=== PATIENT | female | born 1995 | race American Indian/Alaskan Native ===

== ENCOUNTER 2020-03-08 16:30 | Inpatient (IN) | payer MEDICAID ==
[2020-03-08] MEDS ORDERED: Ondansetron 4 MG Tab.DIS PO ONE (17:15)
[2020-03-08] MEDS ORDERED: Sodium Chloride 0.9% 10 ML Syringe FLUSH PRN (17:15)
--- NOTE | 2020-03-08 17:20 | EDM.PDOC ---
ED HPI GENERAL MEDICAL PROBLEM - General Chief Complaint: Respiratory Problem Stated Complaint: KASEY DALEY HAS BEEN EXPOSED Time Seen by Provider: 03/08/20 16:54 Source of Information: Reports: Patient, RN Notes Reviewed History Limitations: Reports: No Limitations - History of Present Illness INITIAL COMMENTS - FREE TEXT/NARRATIVE: Patient is a 24-year-old female who presents to the ED for the evaluation of her increasing shortness of breath. Patient notes that she has been with her cousin, and her cousin tested positive for COVID-19 yesterday. She states that she did take a test on Wednesday but is waiting for results. She states since last Wednesday, or for 6 days she has had increasing shortness of breath, body aches/chills, she did had a fever last Wednesday, she states that she is nauseous and cannot really keep much down she has not ate much for any type of food in the last week. She is also having some mild diarrhea. She was found to have O2 sats 84% on room air at initial time of triage, and she was placed on 1 L nasal cannula and this raised her O2 sats to 94%. She is not having any pain in her body. She is complaining of a dry cough. She states that she is on her menses, so she does not think that she could be . She has no past medical history, other than obesity. She takes no medications on a regular basis, and she is not a smoker, does not drink alcohol and is not a drug user. - Related Data Allergies Allergy/AdvReac Type Severity Reaction Status Date / Time No Known Allergies Allergy Verified 03/08/20 16:46 Home Meds: Home Meds . [No Known Home Meds] 03/08/20 [History] Past Medical History - Past Health History Medical/Surgical History: Denies Medical/Surgical History Endocrine/Metabolic History: Reports: Obesity/BMI 30+ Social & Family History - Family History Family Medical History: Noncontributory - Tobacco Use Smoking Status *Q: Never Smoker - Caffeine Use Caffeine Use: Reports: Coffee, Soda - Recreational Drug Use Recreational Drug Use: No ED ROS GENERAL - Review of Systems Review Of Systems: Comprehensive ROS is negative, except as noted in HPI. ED EXAM, GENERAL - Physical Exam Exam: See Below Exam Limited By: No Limitations General Appearance: Alert, WD/WN, No Apparent Distress Respiratory/Chest: No Respiratory Distress, Lungs Clear, Chest Non-Tender, Decreased Breath Sounds (bilaterally) Cardiovascular: Normal Peripheral Pulses, Regular Rate, Rhythm, No Murmur Peripheral Pulses: 2+: Radial (L), Radial (R) GI/Abdominal: Normal Bowel Sounds, Soft, Non-Tender, No Distention, No Mass Extremities: Normal Inspection, Normal Capillary Refill Neurological: Alert, Oriented, Normal Cognition, No Motor/Sensory Deficits Psychiatric: Normal Affect, Normal Mood Skin Exam: Warm, Dry, Intact, Normal Color, No Rash EKG INTERPRETATION EKG Date: 03/08/20 Time: 17:24 Rhythm: NSR (sinus tach) Rate (Beats/Min): 110 [place]: Normal P-Wave: Present QRS: Normal ST-T: Normal QT: Normal Comparison: NA - No Prior EKG EKG Interpretation Comments: No obvious ischemia or acute ST changes noted, reviewed by myself and Dr. Conley. Course - Vital Signs Last Recorded V/S: Last Vital Signs Temp 98.6 F 03/08/20 16:42 Pulse 124 H 03/08/20 16:42 Resp 28 H 03/08/20 16:42 BP 136/82 03/08/20 16:42 Pulse Ox 84 L 03/08/20 17:15 - Orders/Labs/Meds Orders: Active Orders 24 hr Category Date Time Status EKG Documentation Completion [RC] STAT Care 03/08/20 17:02 Ordered Oxygen Therapy [RC] ASDIRECTED Care 03/08/20 17:16 Active Peripheral IV Care [RC] . DIRECTED Care 03/08/20 17:15 Ordered Chest 1V Frontal [CR] Stat Exams 03/08/20 17:02 Once BLOOD GAS ARTERIAL [BG] Stat Lab 03/08/20 17:02 Ordered Sodium Chloride 0.9% [Saline Flush] Med 03/08/20 17:15 Ordered 10 ml FLUSH ASDIRECTED PRN Peripheral IV Insertion Adult [OM.PC] Routine Oth 03/08/20 17:15 Ordered Medication Orders Sodium Chloride (Saline Flush) 10 ml FLUSH ASDIRECTED PRN PRN Reason: Keep Vein Open Last Admin: 03/08/20 17:41 Dose: 10 ml Documented by: BORIS Labs: Laboratory Tests 08/21/20 08/21/20 08/21/20 Range/Units 17:25 17:25 17:25 WBC 4.82 (3.98-10.04) K/mm3 RBC 4.93 (3.98-5.22) M/mm3 Hgb 10.3 L (11.2-15.7) gm/dl Hct 34.9 (34.1-44.9) % MCV 70.8 L (79.4-94.8) fl MCH 20.9 L (25.6-32.2) pg MCHC 29.5 L (32.2-35.5) g/dl RDW Std Deviation 39.9 (36.4-46.3) fL Plt Count 304 (182-369) K/mm3 MPV 9.4 (9.4-12.3) fl Neutrophils % (Manual) 67 H (40-60) % Band Neutrophils % 1 (0-10) % Lymphocytes % (Manual) 24 (20-40) % Atypical Lymphs % 0 % Monocytes % (Manual) 7 (2-10) % Eosinophils % (Manual) 1 (0.7-5.8) % Basophils % (Manual) 0 L (0.1-1.2) Platelet Estimate Adequate Hypochromasia 1+ slight Microcytosis 1+ slight RBC Morph Comment Not Reportable PT 10.9 (9.7-12.0) SECONDS INR 1.02 APTT 29 (22-31) SECONDS D-Dimer, Quantitative 0.32 (0.19-0.50) mg/L Sodium (136-145) mEq/L Potassium (3.5-5.1) mEq/L Chloride (98-107) mEq/L Carbon Dioxide (21-32) mEq/L Anion Gap (5-15) BUN (7-18) mg/dL Creatinine (0.55-1.02) mg/dL Est Cr Clr Drug Dosing mL/min Estimated GFR (MDRD) (>60) mL/min BUN/Creatinine Ratio (14-18) Glucose (74-106) mg/dL Lactic Acid (0.4-2.0) mmol/L Calcium (8.5-10.1) mg/dL Magnesium (1.8-2.4) mg/dl Ferritin (8-252) ng/ml Total Bilirubin (0.2-1.0) mg/dL AST (15-37) U/L ALT (14-59) U/L Alkaline Phosphatase (46-116) U/L Lactate Dehydrogenase (81-234) U/L Creatine Kinase (26-192) U/L Troponin I (0.00-0.056) ng/mL C-Reactive Protein 4.9 H* (<1.0) mg/dL NT-Pro-B Natriuret Pep (0-125) pg/mL Total Protein (6.4-8.2) g/dl Albumin (3.4-5.0) g/dl Globulin gm/dL Albumin/Globulin Ratio (1-2) SARS Virus RNA (PCR) (NEGATIVE) 03/08/20 03/08/20 03/08/20 Range/Units 17:25 17:25 17:25 WBC (3.98-10.04) K/mm3 RBC (3.98-5.22) M/mm3 Hgb (11.2-15.7) gm/dl Hct (34.1-44.9) % MCV (79.4-94.8) fl MCH (25.6-32.2) pg MCHC (32.2-35.5) g/dl RDW Std Deviation (36.4-46.3) fL Plt Count (182-369) K/mm3 MPV (9.4-12.3) fl Neutrophils % (Manual) (40-60) % Band Neutrophils % (0-10) % Lymphocytes % (Manual) (20-40) % Atypical Lymphs % % Monocytes % (Manual) (2-10) % Eosinophils % (Manual) (0.7-5.8) % Basophils % (Manual) (0.1-1.2) Platelet Estimate Hypochromasia Microcytosis RBC Morph Comment PT (9.7-12.0) SECONDS INR APTT (22-31) SECONDS D-Dimer, Quantitative (0.19-0.50) mg/L Sodium 135 L (136-145) mEq/L Potassium 3.6 (3.5-5.1) mEq/L Chloride 99 (98-107) mEq/L Carbon Dioxide 29 (21-32) mEq/L Anion Gap 10.6 (5-15) BUN 4 L (7-18) mg/dL Creatinine 0.7 (0.55-1.02) mg/dL Est Cr Clr Drug Dosing 121.55 mL/min Estimated GFR (MDRD) > 60 (>60) mL/min BUN/Creatinine Ratio 5.7 L (14-18) Glucose 129 H (74-106) mg/dL Lactic Acid (0.4-2.0) mmol/L Calcium 8.1 L (8.5-10.1) mg/dL Magnesium 1.9 (1.8-2.4) mg/dl Ferritin 105 (8-252) ng/ml Total Bilirubin 0.2 (0.2-1.0) mg/dL AST 136 H (15-37) U/L ALT 130 H (14-59) U/L Alkaline Phosphatase 63 (46-116) U/L Lactate Dehydrogenase 370 H (81-234) U/L Creatine Kinase 55 (26-192) U/L Troponin I < 0.017 (0.00-0.056) ng/mL C-Reactive Protein (<1.0) mg/dL NT-Pro-B Natriuret Pep 25 (0-125) pg/mL Total Protein 8.8 H (6.4-8.2) g/dl Albumin 3.5 (3.4-5.0) g/dl Globulin 5.3 gm/dL Albumin/Globulin Ratio 0.7 L (1-2) SARS Virus RNA (PCR) (NEGATIVE) 03/08/20 03/08/20 Range/Units 17:25 17:50 WBC (3.98-10.04) K/mm3 RBC (3.98-5.22) M/mm3 Hgb (11.2-15.7) gm/dl Hct (34.1-44.9) % MCV (79.4-94.8) fl MCH (25.6-32.2) pg MCHC (32.2-35.5) g/dl RDW Std Deviation (36.4-46.3) fL Plt Count (182-369) K/mm3 MPV (9.4-12.3) fl Neutrophils % (Manual) (40-60) % Band Neutrophils % (0-10) % Lymphocytes % (Manual) (20-40) % Atypical Lymphs % % Monocytes % (Manual) (2-10) % Eosinophils % (Manual) (0.7-5.8) % Basophils % (Manual) (0.1-1.2) Platelet Estimate Hypochromasia Microcytosis RBC Morph Comment PT (9.7-12.0) SECONDS INR APTT (22-31) SECONDS D-Dimer, Quantitative (0.19-0.50) mg/L Sodium (136-145) mEq/L Potassium (3.5-5.1) mEq/L Chloride (98-107) mEq/L Carbon Dioxide (21-32) mEq/L Anion Gap (5-15) BUN (7-18) mg/dL Creatinine (0.55-1.02) mg/dL Est Cr Clr Drug Dosing mL/min Estimated GFR (MDRD) (>60) mL/min BUN/Creatinine Ratio (14-18) Glucose (74-106) mg/dL Lactic Acid 0.7 (0.4-2.0) mmol/L Calcium (8.5-10.1) mg/dL Magnesium (1.8-2.4) mg/dl Ferritin (8-252) ng/ml Total Bilirubin (0.2-1.0) mg/dL AST (15-37) U/L ALT (14-59) U/L Alkaline Phosphatase (46-116) U/L Lactate Dehydrogenase (81-234) U/L Creatine Kinase (26-192) U/L Troponin I (0.00-0.056) ng/mL C-Reactive Protein (<1.0) mg/dL NT-Pro-B Natriuret Pep (0-125) pg/mL Total Protein (6.4-8.2) g/dl Albumin (3.4-5.0) g/dl Globulin gm/dL Albumin/Globulin Ratio (1-2) SARS Virus RNA (PCR) Positive H (NEGATIVE) Meds: Medications Generic Name Dose Route Start Last Admin Trade Name Freq PRN Reason Stop Dose Admin Sodium Chloride 10 ml 03/08/20 17:15 03/08/20 17:41 Saline Flush FLUSH 10 ml ASDIRECTED PRN Administration Keep Vein Open Discontinued Medications Generic Name Dose Route Start Last Admin Trade Name Freq PRN Reason Stop Dose Admin Ondansetron HCl 4 mg 03/08/20 17:15 03/08/20 17:44 Zofran Odt PO 03/08/20 17:16 Not Given ONETIME ONE Ondansetron HCl Confirm 03/08/20 17:40 03/08/20 17:44 Zofran Administered 03/08/20 17:41 Not Given Dose 4 mg .ROUTE .STK-MED ONE Ondansetron HCl 4 mg 03/08/20 17:44 03/08/20 17:45 Zofran IVPUSH 03/08/20 17:45 4 mg ONETIME ONE Administration - Re-Assessments/Exams Free Text/Narrative Re-Assessment/Exam: 03/08/20 17:38 Patient presents to the ED for the evaluation of her ongoing respiratory symptoms, and extensive work-up will be carried out, to include chest x-ray, multiple labs, and 1 hour coronavirus test inhouse testing. She will also have an IV placed, and she will be given Zofran for management. 03/08/20 18:05 Chest x-ray shows low lung volumes, and bilateral perihilar and basilar alveolar opacities concerning for pneumonia or edema versus atelectasis. Due to the patient's symptoms again I highly suspect that she has COVID-19 and would suspect this is more of the viral pneumonia pattern. 03/08/20 18:49 Patient's labs have returned, and she is positive for COVID-19 at this time. CBC is unremarkable, d-dimer in normal limits at 0.32. Lactic acid in normal limits at 0.7. LDH elevated at 370, and CRP elevated at 4.9. I did discuss the case with Dr. Plummer, and he does accept for hospital admission at this time. Departure - Departure Time of Disposition: 18:54 Disposition: Admitted As Inpatient 67 Condition: Good Clinical Impression: 2019 novel coronavirus detected, Hypoxia - Discharge Information *PRESCRIPTION DRUG MONITORING PROGRAM REVIEWED*: No *COPY OF PRESCRIPTION DRUG MONITORING REPORT IN PATIENT RADHA: No Referrals: PCP,None [Primary Care Provider] - Forms: ED Department Discharge Sepsis Event Note (ED) - Evaluation Sepsis Screening Result: Possible Sepsis Risk - Focused Exam Vital Signs: Vital Signs Temp Pulse Resp BP Pulse Ox Pulse Ox 03/08/20 17:15 84 L 03/08/20 16:42 98.6 F 124 H 28 H 136/82 84 L - My Orders Last 24 Hours: My Active Orders 03/08/20 17:02 EKG Documentation Completion [RC] STAT Chest 1V Frontal [CR] Stat BLOOD GAS ARTERIAL [BG] Stat 03/08/20 17:15 Peripheral IV Care [RC] . DIRECTED Sodium Chloride 0.9% [Saline Flush] 10 ml FLUSH ASDIRECTED PRN Peripheral IV Insertion Adult [OM.PC] Routine 03/08/20 17:16 Oxygen Therapy [RC] ASDIRECTED - Assessment/Plan Last 24 Hours: My Active Orders 03/08/20 17:02 EKG Documentation Completion [RC] STAT Chest 1V Frontal [CR] Stat BLOOD GAS ARTERIAL [BG] Stat 03/08/20 17:15 Peripheral IV Care [RC] . DIRECTED Sodium Chloride 0.9% [Saline Flush] 10 ml FLUSH ASDIRECTED PRN Peripheral IV Insertion Adult [OM.PC] Routine 03/08/20 17:16 Oxygen Therapy [RC] ASDIRECTED
[2020-03-08] MEDS ORDERED: Ondansetron 4 MG/2 ML SDV ONE (17:40)
[2020-03-08] MEDS ORDERED: Ondansetron 4 MG/2 ML SDV IVPUSH ONE (17:44)
[2020-03-08] MEDS ORDERED: Ondansetron 4 MG/2 ML SDV IV PRN (20:16)
--- NOTE | 2020-03-08 21:13 | PCM.HP.2 ---
H&P History of Present Illness - General Date of Service: 03/08/20 Admit Problem/Dx: Admission Diagnosis/Problem Admission Diagnosis/Problem Hypoxemia - History of Present Illness Initial Comments - Free Text/Narative: 24-year-old patient who was exposed to her cousin who tested positive with COVID-19 presents to the emergency department with increasing shortness of breath, dry cough, nausea, and diarrhea. Patient states that last Monday, March 02, 2020, she developed a subjective fever. She then became short of breath and developed a cough with body aches. For last several days she has had loose stools and presented to the emergency department with above. In the emergency department she was found to have an SPO2 of 84% on room air and was placed on 1 L nasal cannula. Patient's cousin was tested 5 days ago for COVID 19 and received the positive results today. In the emergency department patient was screened for COVID-19 and tested positive. Patient is a non-smoker and has no history of asthma. Initial lab work: WBC 4.82, hemoglobin 10.3, MCV 70.8 low, MCH 20.9 low, platelet count 304, microcytosis with hypochromasia, PT 10.9, INR 1.0, d-dimer 0.32 normal, C-reactive protein 4.9, sodium 135, potassium 3.6, BUN 4, creatinine 0.7, bicarb 29, magnesium 1.9, ferritin 105, AST 136, ALT 130, LDH 370 (normal 36395) creatinine kinase 55, troponin I less than 0.017, proBNP 25, lactic acid 0.7. - Related Data Allergies/Adverse Reactions: Allergies Allergy/AdvReac Type Severity Reaction Status Date / Time No Known Allergies Allergy Verified 03/08/20 23:32 Home Medications: Home Meds . [No Known Home Meds] 03/08/20 [History] Past Medical History - Past Health History Medical/Surgical History: Denies Medical/Surgical History Endocrine/Metabolic History: Reports: Obesity/BMI 30+ Social & Family History - Family History Family Medical History: Noncontributory - Tobacco Use Smoking Status *Q: Never Smoker - Caffeine Use Caffeine Use: Reports: Coffee, Soda - Recreational Drug Use Recreational Drug Use: No H&P Review of Systems - Review of Systems: Review Of Systems: Comprehensive ROS is negative, except as noted in HPI. Exam - Exam Exam: See Below - Vital Signs Vital Signs: Last Vital Signs Temp 98.6 F 03/08/20 16:42 Pulse 124 H 03/08/20 16:42 Resp 28 H 03/08/20 16:42 BP 136/82 03/08/20 16:42 Pulse Ox 84 L 03/08/20 17:15 Weight: 111.13 kg - Exam Quality Assessment: Supplemental Oxygen General: Alert, Oriented, Mild Distress (Increased respiratory rate and effort) HEENT: Conjunctiva Clear, EOMI, Hearing Intact, Mucosa Moist & Pharr, Nares Patent Neck: Supple, Trachea Midline, 2 Lungs: Clear to Auscultation, Normal Respiratory Effort, Decreased Breath Soun ds. No: Crackles, Rales, Rhonchi, Wheezing Cardiovascular: Regular Rate, Regular Rhythm GI/Abdominal Exam: Normal Bowel Sounds, Soft, Non-Tender, No Organomegaly, No Distention (Obese), No Abnormal Bruit, No Mass Back Exam: Normal Inspection Extremities: Normal Inspection, Normal Range of Motion, Non-Tender, No Pedal Edema, Normal Capillary Refill Skin: Warm, Dry, Intact Neurological: Cranial Nerves Intact Neuro Extensive - Mental Status: Alert, Oriented x3, Normal Mood/Affect, Normal Cognition, Memory Intact Neuro Extensive - Motor, Sensory, Reflexes: CN II-XII Intact Psychiatric: Alert, Normal Affect, Normal Mood - Patient Data Lab Results Last 24 hrs: Laboratory Results - last 24 hr 03/08/20 03/08/20 03/08/20 Range/Units 17:25 17:25 17:25 WBC 4.82 (3.98-10.04) K/mm3 RBC 4.93 (3.98-5.22) M/mm3 Hgb 10.3 L (11.2-15.7) gm/dl Hct 34.9 (34.1-44.9) % MCV 70.8 L (79.4-94.8) fl MCH 20.9 L (25.6-32.2) pg MCHC 29.5 L (32.2-35.5) g/dl RDW Std Deviation 39.9 (36.4-46.3) fL Plt Count 304 (182-369) K/mm3 MPV 9.4 (9.4-12.3) fl Neutrophils % (Manual) 67 H (40-60) % Band Neutrophils % 1 (0-10) % Lymphocytes % (Manual) 24 (20-40) % Atypical Lymphs % 0 % Monocytes % (Manual) 7 (2-10) % Eosinophils % (Manual) 1 (0.7-5.8) % Basophils % (Manual) 0 L (0.1-1.2) Platelet Estimate Adequate Hypochromasia 1+ slight Microcytosis 1+ slight RBC Morph Comment Not Reportable PT 10.9 (9.7-12.0) SECONDS INR 1.02 APTT 29 (22-31) SECONDS D-Dimer, Quantitative 0.32 (0.19-0.50) mg/L Sodium (136-145) mEq/L Potassium (3.5-5.1) mEq/L Chloride (98-107) mEq/L Carbon Dioxide (21-32) mEq/L Anion Gap (5-15) BUN (7-18) mg/dL Creatinine (0.55-1.02) mg/dL Est Cr Clr Drug Dosing mL/min Estimated GFR (MDRD) (>60) mL/min BUN/Creatinine Ratio (14-18) Glucose (74-106) mg/dL Lactic Acid (0.4-2.0) mmol/L Calcium (8.5-10.1) mg/dL Magnesium (1.8-2.4) mg/dl Ferritin (8-252) ng/ml Total Bilirubin (0.2-1.0) mg/dL AST (15-37) U/L ALT (14-59) U/L Alkaline Phosphatase (46-116) U/L Lactate Dehydrogenase (81-234) U/L Creatine Kinase (26-192) U/L Troponin I (0.00-0.056) ng/mL C-Reactive Protein 4.9 H* (<1.0) mg/dL NT-Pro-B Natriuret Pep (0-125) pg/mL Total Protein (6.4-8.2) g/dl Albumin (3.4-5.0) g/dl Globulin gm/dL Albumin/Globulin Ratio (1-2) Vitamin D 25-Hydroxy (30.0-100.0) ng/ml SARS Virus RNA (PCR) (NEGATIVE) 03/08/20 03/08/20 03/08/20 Range/Units 17:25 17:25 17:25 WBC (3.98-10.04) K/mm3 RBC (3.98-5.22) M/mm3 Hgb (11.2-15.7) gm/dl Hct (34.1-44.9) % MCV (79.4-94.8) fl MCH (25.6-32.2) pg MCHC (32.2-35.5) g/dl RDW Std Deviation (36.4-46.3) fL Plt Count (182-369) K/mm3 MPV (9.4-12.3) fl Neutrophils % (Manual) (40-60) % Band Neutrophils % (0-10) % Lymphocytes % (Manual) (20-40) % Atypical Lymphs % % Monocytes % (Manual) (2-10) % Eosinophils % (Manual) (0.7-5.8) % Basophils % (Manual) (0.1-1.2) Platelet Estimate Hypochromasia Microcytosis RBC Morph Comment PT (9.7-12.0) SECONDS INR APTT (22-31) SECONDS D-Dimer, Quantitative (0.19-0.50) mg/L Sodium 135 L (136-145) mEq/L Potassium 3.6 (3.5-5.1) mEq/L Chloride 99 (98-107) mEq/L Carbon Dioxide 29 (21-32) mEq/L Anion Gap 10.6 (5-15) BUN 4 L (7-18) mg/dL Creatinine 0.7 (0.55-1.02) mg/dL Est Cr Clr Drug Dosing 121.55 mL/min Estimated GFR (MDRD) > 60 (>60) mL/min BUN/Creatinine Ratio 5.7 L (14-18) Glucose 129 H (74-106) mg/dL Lactic Acid (0.4-2.0) mmol/L Calcium 8.1 L (8.5-10.1) mg/dL Magnesium 1.9 (1.8-2.4) mg/dl Ferritin 105 (8-252) ng/ml Total Bilirubin 0.2 (0.2-1.0) mg/dL AST 136 H (15-37) U/L ALT 130 H (14-59) U/L Alkaline Phosphatase 63 (46-116) U/L Lactate Dehydrogenase 370 H (81-234) U/L Creatine Kinase 55 (26-192) U/L Troponin I < 0.017 (0.00-0.056) ng/mL C-Reactive Protein (<1.0) mg/dL NT-Pro-B Natriuret Pep 25 (0-125) pg/mL Total Protein 8.8 H (6.4-8.2) g/dl Albumin 3.5 (3.4-5.0) g/dl Globulin 5.3 gm/dL Albumin/Globulin Ratio 0.7 L (1-2) Vitamin D 25-Hydroxy (30.0-100.0) ng/ml SARS Virus RNA (PCR) (NEGATIVE) 03/08/20 03/08/20 03/08/20 Range/Units 17:25 17:25 17:50 WBC (3.98-10.04) K/mm3 RBC (3.98-5.22) M/mm3 Hgb (11.2-15.7) gm/dl Hct (34.1-44.9) % MCV (79.4-94.8) fl MCH (25.6-32.2) pg MCHC (32.2-35.5) g/dl RDW Std Deviation (36.4-46.3) fL Plt Count (182-369) K/mm3 MPV (9.4-12.3) fl Neutrophils % (Manual) (40-60) % Band Neutrophils % (0-10) % Lymphocytes % (Manual) (20-40) % Atypical Lymphs % % Monocytes % (Manual) (2-10) % Eosinophils % (Manual) (0.7-5.8) % Basophils % (Manual) (0.1-1.2) Platelet Estimate Hypochromasia Microcytosis RBC Morph Comment PT (9.7-12.0) SECONDS INR APTT (22-31) SECONDS D-Dimer, Quantitative (0.19-0.50) mg/L Sodium (136-145) mEq/L Potassium (3.5-5.1) mEq/L Chloride (98-107) mEq/L Carbon Dioxide (21-32) mEq/L Anion Gap (5-15) BUN (7-18) mg/dL Creatinine (0.55-1.02) mg/dL Est Cr Clr Drug Dosing mL/min Estimated GFR (MDRD) (>60) mL/min BUN/Creatinine Ratio (14-18) Glucose (74-106) mg/dL Lactic Acid 0.7 (0.4-2.0) mmol/L Calcium (8.5-10.1) mg/dL Magnesium (1.8-2.4) mg/dl Ferritin (8-252) ng/ml Total Bilirubin (0.2-1.0) mg/dL AST (15-37) U/L ALT (14-59) U/L Alkaline Phosphatase (46-116) U/L Lactate Dehydrogenase (81-234) U/L Creatine Kinase (26-192) U/L Troponin I (0.00-0.056) ng/mL C-Reactive Protein (<1.0) mg/dL NT-Pro-B Natriuret Pep (0-125) pg/mL Total Protein (6.4-8.2) g/dl Albumin (3.4-5.0) g/dl Globulin gm/dL Albumin/Globulin Ratio (1-2) Vitamin D 25-Hydroxy < 5.0 L (30.0-100.0) ng/ml SARS Virus RNA (PCR) Positive H (NEGATIVE) Result Diagrams: 03/08/20 17:25 03/09/20 09:45 Imaging Impressions Last 24 hrs: Portable 1 view chest x-ray: Poor inspiratory effort making evaluation more difficult. Possible bilateral infiltrates versus atelectasis. Sepsis Event Note - Evaluation Sepsis Screening Result: Possible Sepsis Risk - Focused Exam Vital Signs: Vital Signs Temp Pulse Resp BP Pulse Ox Pulse Ox 03/08/20 17:15 84 L 03/08/20 16:42 98.6 F 124 H 28 H 136/82 84 L - Problem List (1) 2019 novel coronavirus detected SNOMED Code(s): 694470508, 167289321 ICD Code: U07.1 - COVID-19 Status: Acute Current Visit: Yes (2) Hypoxia SNOMED Code(s): 305156584 ICD Code: R09.02 - HYPOXEMIA Status: Acute Current Visit: Yes (3) Microcytic hypochromic anemia SNOMED Code(s): 11614987 ICD Code: D50.9 - IRON DEFICIENCY ANEMIA, UNSPECIFIED Status: Acute Current Visit: Yes (4) Vitamin D deficiency SNOMED Code(s): 07722893 ICD Code: E55.9 - VITAMIN D DEFICIENCY, UNSPECIFIED Status: Acute Current Visit: Yes Problem List Initiated/Reviewed/Updated: Yes Orders Last 24hrs: Active Orders 24 hr Category Date Time Status Admission Status [Patient Status] [ADT] Routine ADT 03/08/20 18:50 Active Cardiac Monitoring [RC] . DIRECTED Care 03/08/20 19:41 Active EKG Documentation Completion [RC] STAT Care 03/08/20 17:02 Active Oxygen Therapy [RC] ASDIRECTED Care 03/08/20 17:16 Active Peripheral IV Care [RC] . DIRECTED Care 03/08/20 17:15 Active Up ad Aury [RC] ASDIRECTED Care 03/08/20 20:16 Active VTE/DVT Education [RC] PER UNIT ROUTINE Care 03/08/20 20:16 Active Vital Signs [RC] Q4H Care 03/08/20 20:16 Active Respiratory Care Assess and Treatment [CONS] Routine Cons 03/08/20 20:19 Active Regular Diet [DIET] Diet 03/08/20 Dinner Active Chest 1V Frontal [CR] Stat Exams 03/08/20 17:02 Once C-REACTIVE PROTEIN [CHEM] AM Lab 03/09/20 05:11 Ordered C-REACTIVE PROTEIN [CHEM] AM Lab 03/10/20 05:11 Ordered C-REACTIVE PROTEIN [CHEM] AM Lab 03/11/20 05:11 Ordered C-REACTIVE PROTEIN [CHEM] AM Lab 03/12/20 05:11 Ordered C-REACTIVE PROTEIN [CHEM] AM Lab 03/13/20 05:11 Ordered C-REACTIVE PROTEIN [CHEM] AM Lab 03/14/20 05:11 Ordered CBC WITH AUTO DIFF [HEME] AM Lab 03/09/20 05:11 Ordered CBC WITH AUTO DIFF [HEME] AM Lab 03/10/20 05:11 Ordered CBC WITH AUTO DIFF [HEME] AM Lab 03/11/20 05:11 Ordered CBC WITH AUTO DIFF [HEME] AM Lab 03/12/20 05:11 Ordered CBC WITH AUTO DIFF [HEME] AM Lab 03/13/20 05:11 Ordered CBC WITH AUTO DIFF [HEME] AM Lab 03/14/20 05:11 Ordered COMPREHENSIVE METABOLIC PN,CMP [CHEM] AM Lab 03/09/20 05:11 Ordered COMPREHENSIVE METABOLIC PN,CMP [CHEM] AM Lab 03/10/20 05:11 Ordered COMPREHENSIVE METABOLIC PN,CMP [CHEM] AM Lab 03/11/20 05:11 Ordered COMPREHENSIVE METABOLIC PN,CMP [CHEM] AM Lab 03/12/20 05:11 Ordered COMPREHENSIVE METABOLIC PN,CMP [CHEM] AM Lab 03/13/20 05:11 Ordered COMPREHENSIVE METABOLIC PN,CMP [CHEM] AM Lab 03/14/20 05:11 Ordered D Dimer [D-DIMER QUANTITATIVE] [COAG] AM Lab 03/09/20 05:11 Ordered D Dimer [D-DIMER QUANTITATIVE] [COAG] AM Lab 03/10/20 05:11 Ordered D Dimer [D-DIMER QUANTITATIVE] [COAG] AM Lab 03/11/20 05:11 Ordered D Dimer [D-DIMER QUANTITATIVE] [COAG] AM Lab 03/12/20 05:11 Ordered D Dimer [D-DIMER QUANTITATIVE] [COAG] AM Lab 03/13/20 05:11 Ordered D Dimer [D-DIMER QUANTITATIVE] [COAG] AM Lab 03/14/20 05:11 Ordered MAGNESIUM [CHEM] AM Lab 03/09/20 05:11 Ordered MAGNESIUM [CHEM] AM Lab 03/10/20 05:11 Ordered MAGNESIUM [CHEM] AM Lab 03/11/20 05:11 Ordered MAGNESIUM [CHEM] AM Lab 03/12/20 05:11 Ordered MAGNESIUM [CHEM] AM Lab 03/13/20 05:11 Ordered MAGNESIUM [CHEM] AM Lab 03/14/20 05:11 Ordered Acetaminophen [TylenoL] Med 03/08/20 20:16 Active 650 mg PO Q4H PRN Enoxaparin [Lovenox] Med 03/08/20 20:30 Active 40 mg SUBCUT DAILY Ondansetron [Zofran] Med 03/08/20 20:16 Active 4 mg IV Q4H PRN Remdesivir (Eua) [Remdesivir (EUA)] 200 mg Med 03/08/20 21:00 Active Sodium Chloride 0.9% [Normal Saline] 250 ml IV ONETIME Sodium Chloride 0.9% [Saline Flush] Med 03/08/20 17:15 Active 10 ml FLUSH ASDIRECTED PRN Peripheral IV Insertion Adult [OM.PC] Routine Oth 03/08/20 17:15 Ordered Pulse Oximetry Continuous Monitoring [OM.PC] Routine Oth 03/08/20 19:50 Active Resuscitation Status Routine Resus Stat 03/08/20 20:16 Ordered Medication Orders Acetaminophen (Tylenol) 650 mg PO Q4H PRN PRN Reason: Pain (Mild 1-3)/fever Enoxaparin Sodium (Lovenox) 40 mg SUBCUT DAILY SONYA REMDESIVIR (EUA) 200 mg/ (Sodium Chloride) 250 mls @ 250 mls/hr IV ONETIME ONE Stop: 03/08/20 21:59 Ondansetron HCl (Zofran) 4 mg IV Q4H PRN PRN Reason: Nausea/Vomiting Sodium Chloride (Saline Flush) 10 ml FLUSH ASDIRECTED PRN PRN Reason: Keep Vein Open Last Admin: 03/08/20 17:41 Dose: 10 ml Documented by: BORIS Assessment/Plan Comment:: Assessment COVID-19 infection with hypoxemia * Symptoms started 6 days ago with fever and progressed to shortness of breath, cough, nausea, vomiting, and diarrhea * Mild respiratory distress with increased respiratory rate * Initial pulse ox on room air 84% * 1 L nasal cannula adequate to bring SPO2 up to 94% * Patient is able to keep fluids down but not solid foods. * Adequate urination * Chest x-ray consistent with bilateral pneumonia, but poor quality image secondary to poor inspiration * WBC 4.82, INR 1.0, d-dimer 0.32, CRP 4.9, ferritin 105, creatinine kinase 55, LDH 370, troponin I less than 0.017, proBNP 25, lactic acid 0.7 Microcytic anemia * Hemoglobin 10.3 with MCV of 70.8 and MCH 20.9. Microcytosis and hypochromasia was noted. * Normal ferritin of 105, but confounded by active COVID-19 infection * Menstrual cycles are generally normal in quality and only last 5 days. Vitamin D deficiency * 25 hydroxy vitamin D <0.05 Plan * Admit to [facility] on telemetry and continuous pulse ox * FiO2 to keep SPO2 between 88-95% * Remdesivir 200 mg IV x1 then 100 mg IV daily * Hold on using dexamethasone, antibiotics, tocilizumab secondary to requiring only 1 L nasal cannula and CRP less than 8. Hold on antibiotics because no signs of bacterial coinfection. * Monitor CBC, CMP, mag, d-dimer, CRP daily. * If CRP continues to climb her oxygen requirement continues to increase will consider dexamethasone and tocilizumab. * Encourage prone positioning * Ferrous sulfate 324 mg twice daily with vitamin C 250 mg twice daily * Vitamin D3 5000 international units daily * Procalcitonin * Troponin I in the morning * VTE prophylaxis with Lovenox 40 mg subcu daily * CODE STATUS: Full code * Length of stay minimum of 5 days to finish full course of remdesivir. Patient also will need to be off of requiring oxygen. - Mortality Measure Prognosis:: Good
[2020-03-08] MEDS: Codeine/guaiFENesin 10-100 MG/5 ML Syrup 5 ML Cup PO PRN (22:20)
[2020-03-08] MEDS: Cholecalciferol (Vitamin D3) 5,000 UNIT Tab PO SCH (22:21)
[2020-03-08] MEDS: Enoxaparin 40 MG/0.4 ML Syringe SUBCUT SCH (22:21)
[2020-03-08] MEDS: Benzonatate 100 MG Cap PO PRN (22:21)
[2020-03-09] MEDS: Acetaminophen 325 MG Tab PO PRN ×2 (04:18→13:40)
[2020-03-09] MEDS: Codeine/guaiFENesin 10-100 MG/5 ML Syrup 5 ML Cup PO PRN ×3 (04:18→20:14)
[2020-03-09] MEDS: Benzonatate 100 MG Cap PO PRN ×3 (04:18→20:14)
[2020-03-09] MEDS: Ascorbic Acid 500 MG Tab PO SCH ×2 (06:31→16:10)
[2020-03-09] MEDS: Ferrous Sulfate 324 MG Tab.EC PO SCH ×2 (06:32→16:11)
[2020-03-09] MEDS: Cholecalciferol (Vitamin D3) 5,000 UNIT Tab PO SCH (09:13)
[2020-03-09] MEDS: Enoxaparin 40 MG/0.4 ML Syringe SUBCUT SCH (09:13)
--- NOTE | 2020-03-09 10:25 | CR ---
Chest: Portable view of the chest was obtained. Comparison: No prior chest imaging is available. Low lung volumes are noted. Increased density is noted within the mid and lower lungs most likely due to atelectasis. If patient has infectious symptoms pneumonia is also within the differential. Heart size and mediastinum are normal. Bony structures are grossly intact. Impression: 1. Limited study as noted above. 2. Atelectasis likely present within both lungs. Differential includes pneumonia if patient has infectious symptoms. Diagnostic code #3 This report was dictated in MDT I agree with preliminary report from [facility], finalized on 03/08/20, 6:55 PM Central Daylight Time
[2020-03-09] MEDS ORDERED: Potassium Chloride 20 MEQ Tab.ER PO ONE (10:29)
[2020-03-09] MEDS ORDERED: Azithromycin 500 MG in Sodium Chloride 0.9% 250 ML IV ONE (13:51)
[2020-03-09] MEDS ORDERED: Albuterol 6.7 GM Inhaler INH PRN (13:54)
[2020-03-09] MEDS: cefTRIAXone 2 GM in Sodium Chloride 0.9% 100 ML IV SCH (14:30)
[2020-03-09] MEDS: Dexamethasone 4 MG Tab PO SCH (14:32)
--- NOTE | 2020-03-09 14:43 | PCM.PN ---
- General Info Date of Service: 03/09/20 Admission Dx/Problem (Free Text): Admission Diagnosis/Problem Admission Diagnosis/Problem Hypoxemia Subjective Update: Patient is having more difficulty this morning with coughing. She is requiring increasing FiO2 to maintain saturations in the 90s. If she gets up and goes to the bathroom or does any other activity she will quickly desat and require several minutes to get her oxygen saturations higher. She is currently on between 3 and 4 L nasal cannula. She has a poor appetite and did not sleep well last night because of coughing. Functional Status: Reports: Pain Controlled - Review of Systems General: Reports: No Symptoms HEENT: Reports: No Symptoms Pulmonary: Reports: Shortness of Breath, Cough Cardiovascular: Reports: No Symptoms Gastrointestinal: Reports: Decreased Appetite, Nausea Musculoskeletal: Reports: No Symptoms Skin: Reports: No Symptoms Psychiatric: Reports: No Symptoms - Patient Data Vitals - Most Recent: Last Vital Signs Temp 97.2 F 03/09/20 13:42 Pulse 88 03/09/20 13:42 Resp 24 H 03/09/20 13:42 BP 122/68 03/09/20 12:00 Pulse Ox 93 L 03/09/20 13:42 Weight - Most Recent: 111.13 kg I&O - Last 24 Hours: Intake & Output 03/08/20 03/09/20 03/09/20 22:59 06:59 14:59 Intake Total 250 910 Output Total 250 Balance 250 660 Lab Results Last 24 Hours: Laboratory Results - last 24 hr 03/08/20 03/08/20 03/08/20 Range/Units 17:25 17:25 17:25 WBC 4.82 (3.98-10.04) K/mm3 RBC 4.93 (3.98-5.22) M/mm3 Hgb 10.3 L (11.2-15.7) gm/dl Hct 34.9 (34.1-44.9) % MCV 70.8 L (79.4-94.8) fl MCH 20.9 L (25.6-32.2) pg MCHC 29.5 L (32.2-35.5) g/dl RDW Std Deviation 39.9 (36.4-46.3) fL Plt Count 304 (182-369) K/mm3 MPV 9.4 (9.4-12.3) fl Neutrophils % (Manual) 67 H (40-60) % Band Neutrophils % 1 (0-10) % Lymphocytes % (Manual) 24 (20-40) % Atypical Lymphs % 0 % Monocytes % (Manual) 7 (2-10) % Eosinophils % (Manual) 1 (0.7-5.8) % Basophils % (Manual) 0 L (0.1-1.2) Platelet Estimate Adequate Hypochromasia 1+ slight Microcytosis 1+ slight RBC Morph Comment Not Reportable PT 10.9 (9.7-12.0) SECONDS INR 1.02 APTT 29 (22-31) SECONDS Fibrinogen (187-446) mg/dL D-Dimer, Quantitative 0.32 (0.19-0.50) mg/L Sodium (136-145) mEq/L Potassium (3.5-5.1) mEq/L Chloride (98-107) mEq/L Carbon Dioxide (21-32) mEq/L Anion Gap (5-15) BUN (7-18) mg/dL Creatinine (0.55-1.02) mg/dL Est Cr Clr Drug Dosing mL/min Estimated GFR (MDRD) (>60) mL/min BUN/Creatinine Ratio (14-18) Glucose (74-106) mg/dL Lactic Acid (0.4-2.0) mmol/L Calcium (8.5-10.1) mg/dL Phosphorus (2.6-4.7) mg/dL Magnesium (1.8-2.4) mg/dl Ferritin (8-252) ng/ml Total Bilirubin (0.2-1.0) mg/dL AST (15-37) U/L ALT (14-59) U/L Alkaline Phosphatase (46-116) U/L Lactate Dehydrogenase (81-234) U/L Creatine Kinase (26-192) U/L Troponin I (0.00-0.056) ng/mL C-Reactive Protein 4.9 H* (<1.0) mg/dL NT-Pro-B Natriuret Pep (0-125) pg/mL Total Protein (6.4-8.2) g/dl Albumin (3.4-5.0) g/dl Globulin gm/dL Albumin/Globulin Ratio (1-2) Vitamin D 25-Hydroxy (30.0-100.0) ng/ml SARS Virus RNA (PCR) (NEGATIVE) 03/08/20 03/08/20 03/08/20 Range/Units 17:25 17:25 17:25 WBC (3.98-10.04) K/mm3 RBC (3.98-5.22) M/mm3 Hgb (11.2-15.7) gm/dl Hct (34.1-44.9) % MCV (79.4-94.8) fl MCH (25.6-32.2) pg MCHC (32.2-35.5) g/dl RDW Std Deviation (36.4-46.3) fL Plt Count (182-369) K/mm3 MPV (9.4-12.3) fl Neutrophils % (Manual) (40-60) % Band Neutrophils % (0-10) % Lymphocytes % (Manual) (20-40) % Atypical Lymphs % % Monocytes % (Manual) (2-10) % Eosinophils % (Manual) (0.7-5.8) % Basophils % (Manual) (0.1-1.2) Platelet Estimate Hypochromasia Microcytosis RBC Morph Comment PT (9.7-12.0) SECONDS INR APTT (22-31) SECONDS Fibrinogen (187-446) mg/dL D-Dimer, Quantitative (0.19-0.50) mg/L Sodium 135 L (136-145) mEq/L Potassium 3.6 (3.5-5.1) mEq/L Chloride 99 (98-107) mEq/L Carbon Dioxide 29 (21-32) mEq/L Anion Gap 10.6 (5-15) BUN 4 L (7-18) mg/dL Creatinine 0.7 (0.55-1.02) mg/dL Est Cr Clr Drug Dosing 121.55 mL/min Estimated GFR (MDRD) > 60 (>60) mL/min BUN/Creatinine Ratio 5.7 L (14-18) Glucose 129 H (74-106) mg/dL Lactic Acid (0.4-2.0) mmol/L Calcium 8.1 L (8.5-10.1) mg/dL Phosphorus (2.6-4.7) mg/dL Magnesium 1.9 (1.8-2.4) mg/dl Ferritin 105 (8-252) ng/ml Total Bilirubin 0.2 (0.2-1.0) mg/dL AST 136 H (15-37) U/L ALT 130 H (14-59) U/L Alkaline Phosphatase 63 (46-116) U/L Lactate Dehydrogenase 370 H (81-234) U/L Creatine Kinase 55 (26-192) U/L Troponin I < 0.017 (0.00-0.056) ng/mL C-Reactive Protein (<1.0) mg/dL NT-Pro-B Natriuret Pep 25 (0-125) pg/mL Total Protein 8.8 H (6.4-8.2) g/dl Albumin 3.5 (3.4-5.0) g/dl Globulin 5.3 gm/dL Albumin/Globulin Ratio 0.7 L (1-2) Vitamin D 25-Hydroxy (30.0-100.0) ng/ml SARS Virus RNA (PCR) (NEGATIVE) 03/08/20 03/08/20 03/08/20 Range/Units 17:25 17:25 17:50 WBC (3.98-10.04) K/mm3 RBC (3.98-5.22) M/mm3 Hgb (11.2-15.7) gm/dl Hct (34.1-44.9) % MCV (79.4-94.8) fl MCH (25.6-32.2) pg MCHC (32.2-35.5) g/dl RDW Std Deviation (36.4-46.3) fL Plt Count (182-369) K/mm3 MPV (9.4-12.3) fl Neutrophils % (Manual) (40-60) % Band Neutrophils % (0-10) % Lymphocytes % (Manual) (20-40) % Atypical Lymphs % % Monocytes % (Manual) (2-10) % Eosinophils % (Manual) (0.7-5.8) % Basophils % (Manual) (0.1-1.2) Platelet Estimate Hypochromasia Microcytosis RBC Morph Comment PT (9.7-12.0) SECONDS INR APTT (22-31) SECONDS Fibrinogen (187-446) mg/dL D-Dimer, Quantitative (0.19-0.50) mg/L Sodium (136-145) mEq/L Potassium (3.5-5.1) mEq/L Chloride (98-107) mEq/L Carbon Dioxide (21-32) mEq/L Anion Gap (5-15) BUN (7-18) mg/dL Creatinine (0.55-1.02) mg/dL Est Cr Clr Drug Dosing mL/min Estimated GFR (MDRD) (>60) mL/min BUN/Creatinine Ratio (14-18) Glucose (74-106) mg/dL Lactic Acid 0.7 (0.4-2.0) mmol/L Calcium (8.5-10.1) mg/dL Phosphorus (2.6-4.7) mg/dL Magnesium (1.8-2.4) mg/dl Ferritin (8-252) ng/ml Total Bilirubin (0.2-1.0) mg/dL AST (15-37) U/L ALT (14-59) U/L Alkaline Phosphatase (46-116) U/L Lactate Dehydrogenase (81-234) U/L Creatine Kinase (26-192) U/L Troponin I (0.00-0.056) ng/mL C-Reactive Protein (<1.0) mg/dL NT-Pro-B Natriuret Pep (0-125) pg/mL Total Protein (6.4-8.2) g/dl Albumin (3.4-5.0) g/dl Globulin gm/dL Albumin/Globulin Ratio (1-2) Vitamin D 25-Hydroxy < 5.0 L (30.0-100.0) ng/ml SARS Virus RNA (PCR) Positive H (NEGATIVE) 03/09/20 03/09/20 03/09/20 Range/Units 09:45 09:45 09:45 WBC (3.98-10.04) K/mm3 RBC (3.98-5.22) M/mm3 Hgb (11.2-15.7) gm/dl Hct (34.1-44.9) % MCV (79.4-94.8) fl MCH (25.6-32.2) pg MCHC (32.2-35.5) g/dl RDW Std Deviation (36.4-46.3) fL Plt Count (182-369) K/mm3 MPV (9.4-12.3) fl Neutrophils % (Manual) (40-60) % Band Neutrophils % (0-10) % Lymphocytes % (Manual) (20-40) % Atypical Lymphs % % Monocytes % (Manual) (2-10) % Eosinophils % (Manual) (0.7-5.8) % Basophils % (Manual) (0.1-1.2) Platelet Estimate Hypochromasia Microcytosis RBC Morph Comment PT (9.7-12.0) SECONDS INR APTT (22-31) SECONDS Fibrinogen (187-446) mg/dL D-Dimer, Quantitative 0.32 (0.19-0.50) mg/L Sodium 135 L (136-145) mEq/L Potassium 3.3 L (3.5-5.1) mEq/L Chloride 98 (98-107) mEq/L Carbon Dioxide 29 (21-32) mEq/L Anion Gap 11.3 (5-15) BUN 9 (7-18) mg/dL Creatinine 0.7 (0.55-1.02) mg/dL Est Cr Clr Drug Dosing 121.55 mL/min Estimated GFR (MDRD) > 60 (>60) mL/min BUN/Creatinine Ratio 12.9 L (14-18) Glucose 116 H (74-106) mg/dL Lactic Acid (0.4-2.0) mmol/L Calcium 8.1 L (8.5-10.1) mg/dL Phosphorus 4.0 (2.6-4.7) mg/dL Magnesium 2.0 (1.8-2.4) mg/dl Ferritin (8-252) ng/ml Total Bilirubin 0.2 (0.2-1.0) mg/dL AST 167 H (15-37) U/L ALT 137 H (14-59) U/L Alkaline Phosphatase 55 (46-116) U/L Lactate Dehydrogenase (81-234) U/L Creatine Kinase (26-192) U/L Troponin I < 0.017 (0.00-0.056) ng/mL C-Reactive Protein 5.2 H* (<1.0) mg/dL NT-Pro-B Natriuret Pep (0-125) pg/mL Total Protein 8.1 (6.4-8.2) g/dl Albumin 3.1 L (3.4-5.0) g/dl Globulin 5.0 gm/dL Albumin/Globulin Ratio 0.6 L (1-2) Vitamin D 25-Hydroxy (30.0-100.0) ng/ml SARS Virus RNA (PCR) (NEGATIVE) 03/09/20 Range/Units 09:45 WBC (3.98-10.04) K/mm3 RBC (3.98-5.22) M/mm3 Hgb (11.2-15.7) gm/dl Hct (34.1-44.9) % MCV (79.4-94.8) fl MCH (25.6-32.2) pg MCHC (32.2-35.5) g/dl RDW Std Deviation (36.4-46.3) fL Plt Count (182-369) K/mm3 MPV (9.4-12.3) fl Neutrophils % (Manual) (40-60) % Band Neutrophils % (0-10) % Lymphocytes % (Manual) (20-40) % Atypical Lymphs % % Monocytes % (Manual) (2-10) % Eosinophils % (Manual) (0.7-5.8) % Basophils % (Manual) (0.1-1.2) Platelet Estimate Hypochromasia Microcytosis RBC Morph Comment PT (9.7-12.0) SECONDS INR APTT (22-31) SECONDS Fibrinogen 444 (187-446) mg/dL D-Dimer, Quantitative (0.19-0.50) mg/L Sodium (136-145) mEq/L Potassium (3.5-5.1) mEq/L Chloride (98-107) mEq/L Carbon Dioxide (21-32) mEq/L Anion Gap (5-15) BUN (7-18) mg/dL Creatinine (0.55-1.02) mg/dL Est Cr Clr Drug Dosing mL/min Estimated GFR (MDRD) (>60) mL/min BUN/Creatinine Ratio (14-18) Glucose (74-106) mg/dL Lactic Acid (0.4-2.0) mmol/L Calcium (8.5-10.1) mg/dL Phosphorus (2.6-4.7) mg/dL Magnesium (1.8-2.4) mg/dl Ferritin (8-252) ng/ml Total Bilirubin (0.2-1.0) mg/dL AST (15-37) U/L ALT (14-59) U/L Alkaline Phosphatase (46-116) U/L Lactate Dehydrogenase (81-234) U/L Creatine Kinase (26-192) U/L Troponin I (0.00-0.056) ng/mL C-Reactive Protein (<1.0) mg/dL NT-Pro-B Natriuret Pep (0-125) pg/mL Total Protein (6.4-8.2) g/dl Albumin (3.4-5.0) g/dl Globulin gm/dL Albumin/Globulin Ratio (1-2) Vitamin D 25-Hydroxy (30.0-100.0) ng/ml SARS Virus RNA (PCR) (NEGATIVE) Med Orders - Current: Current Medications Acetaminophen (Tylenol) 650 mg PO Q4H PRN PRN Reason: Pain (Mild 1-3)/fever Last Admin: 03/09/20 13:40 Dose: 650 mg Documented by: Albuterol (Proventil Hfa) 0 gm INH Q4H PRN PRN Reason: Shortness of Breath Last Admin: 03/09/20 14:09 Dose: 2 puff Documented by: Ascorbic Acid (Vitamin C) 250 mg PO BIDAC [facility] Last Admin: 03/09/20 06:31 Dose: 250 mg Documented by: Benzonatate (Tessalon Perles) 100 mg PO QID PRN PRN Reason: Cough Last Admin: 03/09/20 13:40 Dose: 100 mg Documented by: Cholecalciferol (Vitamin D3) 10,000 unit PO DAILY [facility] Dexamethasone (Dexamethasone) 6 mg PO DAILY [facility] Last Admin: 03/09/20 14:32 Dose: 6 mg Documented by: Enoxaparin Sodium (Lovenox) 40 mg SUBCUT DAILY [facility] Last Admin: 03/09/20 09:13 Dose: 40 mg Documented by: Ferrous Sulfate (Ferrous Sulfate) 324 mg PO BIDMEALS [facility] Last Admin: 03/09/20 06:32 Dose: 324 mg Documented by: Guaifenesin/Codeine Phosphate (Robitussin Ac) 5 ml PO Q4H PRN PRN Reason: Cough Last Admin: 03/09/20 13:39 Dose: 5 ml Documented by: REMDESIVIR (EUA) 100 mg/ (Sodium Chloride) 100 mls @ 100 mls/hr IV Q24H [facility] Stop: 03/12/20 21:59 Azithromycin 500 mg/ Sodium (Chloride) 250 mls @ 250 mls/hr IV ONETIME ONE Stop: 03/09/20 14:50 Last Admin: 03/09/20 14:33 Dose: 250 mls/hr Documented by: Ceftriaxone Sodium 2 gm/ (Sodium Chloride) 100 mls @ 200 mls/hr IV Q24H [facility] Last Admin: 03/09/20 14:30 Dose: 200 mls/hr Documented by: Azithromycin 500 mg/ Sodium (Chloride) 250 mls @ 250 mls/hr IV Q24H [facility] Stop: 03/12/20 14:01 Ondansetron HCl (Zofran) 4 mg IV Q4H PRN PRN Reason: Nausea/Vomiting Sodium Chloride (Saline Flush) 10 ml FLUSH ASDIRECTED PRN PRN Reason: Keep Vein Open Last Admin: 03/08/20 17:41 Dose: 10 ml Documented by: Discontinued Medications Cholecalciferol (Vitamin D3) 5,000 unit PO DAILY [facility] Last Admin: 03/09/20 09:13 Dose: 5,000 unit Documented by: REMDESIVIR (EUA) 200 mg/ (Sodium Chloride) 250 mls @ 250 mls/hr IV ONETIME ONE Stop: 03/08/20 21:59 Last Admin: 03/08/20 21:13 Dose: 250 mls/hr Documented by: Ondansetron HCl (Zofran Odt) 4 mg PO ONETIME ONE Stop: 03/08/20 17:16 Last Admin: 03/08/20 17:44 Dose: Not Given Documented by: Ondansetron HCl (Zofran) Confirm Administered Dose 4 mg .ROUTE .STK-MED ONE Stop: 03/08/20 17:41 Last Admin: 03/08/20 17:44 Dose: Not Given Documented by: Ondansetron HCl (Zofran) 4 mg IVPUSH ONETIME ONE Stop: 03/08/20 17:45 Last Admin: 03/08/20 17:45 Dose: 4 mg Documented by: Potassium Chloride (Klor-Con M20) 40 meq PO ONETIME ONE Stop: 03/09/20 10:30 Last Admin: 03/09/20 12:45 Dose: 40 meq Documented by: - Exam Quality Assessment: Supplemental Oxygen General: Alert, Oriented HEENT: Pupils Equal, Mucous Membr. Moist/[place] Neck: Supple Lungs: Clear to Auscultation, Normal Respiratory Effort, Decreased Breath Sounds Cardiovascular: Regular Rate, Regular Rhythm GI/Abdominal Exam: Normal Bowel Sounds, Soft, Non-Tender, No Distention, No Abnormal Bruit Extremities: Normal Inspection, Normal Range of Motion, Non-Tender, No Pedal Edema, Normal Capillary Refill Peripheral Pulses: 2+: Posterior Tibial (L), Posterior Tibial (R), Dorsalis Pedis (L), Dorsalis Pedis (R) Skin: Warm, Dry, Intact Neurological: No New Focal Deficit Psy/Mental Status: Alert, Normal Affect, Normal Mood Sepsis Event Note - Evaluation Sepsis Screening Result: Possible Sepsis Risk - Focused Exam Vital Signs: Vital Signs Temp Temp Pulse Pulse Resp BP BP 03/09/20 13:42 97.2 F 88 24 H 03/09/20 12:30 85 03/09/20 12:15 78 03/09/20 12:01 93 03/09/20 12:00 80 89 22 H 122/68 122/68 03/09/20 11:59 81 03/09/20 11:45 77 03/09/20 11:30 78 03/09/20 11:15 74 03/09/20 11:00 76 03/09/20 10:45 76 03/09/20 10:30 74 03/09/20 10:15 77 03/09/20 10:00 74 03/09/20 09:45 82 03/09/20 09:30 80 03/09/20 09:17 87 119/69 03/09/20 09:16 90 03/09/20 09:15 85 03/09/20 09:14 86 03/09/20 09:13 84 03/09/20 09:12 84 93/77 03/09/20 09:11 88 03/09/20 09:10 83 03/09/20 09:09 82 03/09/20 09:08 75 03/09/20 09:07 80 03/09/20 09:06 82 03/09/20 09:05 77 03/09/20 09:04 75 03/09/20 09:03 81 03/09/20 09:02 80 03/09/20 09:01 75 03/09/20 09:00 80 03/09/20 08:59 79 03/09/20 08:58 80 03/09/20 08:57 79 03/09/20 08:56 79 03/09/20 08:55 78 03/09/20 08:54 76 03/09/20 08:53 75 03/09/20 08:52 77 03/09/20 08:51 76 03/09/20 08:50 80 03/09/20 08:49 78 03/09/20 08:48 80 03/09/20 08:01 82 88/69 L 03/09/20 08:00 97.8 F 78 87 22 H 119/69 03/09/20 07:00 75 03/09/20 06:00 97.7 F 80 20 03/09/20 05:00 89 03/09/20 04:18 99.8 F 03/09/20 04:00 99.6 F 24 H 123/67 03/09/20 03:00 91 Pulse Ox 03/09/20 13:42 93 L 03/09/20 12:30 98 03/09/20 12:15 96 03/09/20 12:01 94 L 03/09/20 12:00 93 L 03/09/20 11:59 96 03/09/20 11:45 97 03/09/20 11:30 97 03/09/20 11:15 97 03/09/20 11:00 97 03/09/20 10:45 96 03/09/20 10:30 96 03/09/20 10:15 96 03/09/20 10:00 97 03/09/20 09:45 96 03/09/20 09:30 95 03/09/20 09:17 92 L 03/09/20 09:16 93 L 03/09/20 09:15 94 L 03/09/20 09:14 94 L 03/09/20 09:13 94 L 03/09/20 09:12 93 L 03/09/20 09:11 93 L 03/09/20 09:10 95 03/09/20 09:09 97 03/09/20 09:08 95 03/09/20 09:07 93 L 03/09/20 09:06 94 L 03/09/20 09:05 94 L 03/09/20 09:04 94 L 03/09/20 09:03 93 L 03/09/20 09:02 93 L 03/09/20 09:01 93 L 03/09/20 09:00 94 L 03/09/20 08:59 91 L 03/09/20 08:58 93 L 03/09/20 08:57 93 L 03/09/20 08:56 93 L 03/09/20 08:55 93 L 03/09/20 08:54 93 L 03/09/20 08:53 93 L 03/09/20 08:52 93 L 03/09/20 08:51 93 L 03/09/20 08:50 92 L 03/09/20 08:49 92 L 03/09/20 08:48 92 L 03/09/20 08:01 97 03/09/20 08:00 97 03/09/20 07:00 96 03/09/20 06:00 97 03/09/20 05:00 95 03/09/20 04:18 03/09/20 04:00 93 L 03/09/20 03:00 95 - Problem List & Annotations (1) 2019 novel coronavirus detected SNOMED Code(s): 637844195, 790947403 Code(s): U07.1 - COVID-19 Status: Acute Current Visit: Yes (2) Hypoxia SNOMED Code(s): 621190072 Code(s): R09.02 - HYPOXEMIA Status: Acute Current Visit: Yes (3) Microcytic hypochromic anemia SNOMED Code(s): 86316940 Code(s): D50.9 - IRON DEFICIENCY ANEMIA, UNSPECIFIED Status: Acute Current Visit: Yes (4) Vitamin D deficiency SNOMED Code(s): 63254375 Code(s): E55.9 - VITAMIN D DEFICIENCY, UNSPECIFIED Status: Acute Current Visit: Yes - Problem List Review Problem List Initiated/Reviewed/Updated: Yes - My Orders Last 24 Hours: My Active Orders 03/08/20 19:41 Cardiac Monitoring [RC] . DIRECTED 03/08/20 19:50 Pulse Oximetry Continuous Monitoring [OM.PC] Routine 03/08/20 20:16 Up ad Aury [RC] ASDIRECTED VTE/DVT Education [RC] Vital Signs [RC] Q4HR Acetaminophen [TylenoL] 650 mg PO Q4H PRN Ondansetron [Zofran] 4 mg IV Q4H PRN Resuscitation Status Routine 03/08/20 20:19 Respiratory Care Assess and Treatment [CONS] Routine 03/08/20 20:30 Enoxaparin [Lovenox] 40 mg SUBCUT DAILY 03/08/20 21:45 Benzonatate [Tessalon Perles] 100 mg PO QID PRN 03/08/20 21:46 Codeine/guaiFENesin [Robitussin AC] 5 ml PO Q4H PRN 03/08/20 23:06 Admission Status [Patient Status] [ADT] Routine 03/09/20 06:00 Ascorbic Acid [Vitamin C] 250 mg PO BIDAC 03/09/20 07:00 Ferrous Sulfate 324 mg PO BIDMEALS 03/09/20 09:45 PROCALCITONIN [REF] Routine 03/09/20 13:51 Azithromycin [Zithromax] 500 mg Sodium Chloride 0.9% [Normal Saline] 250 ml IV ONETIME 03/09/20 13:54 Albuterol [Proventil HFA] See Dose Instructions INH Q4H PRN 03/09/20 13:55 RT Post Treatment Assessment [RC] Click to Edit RT Pre-Treatment Assessment [RC] Click to Edit 03/09/20 14:00 cefTRIAXone [Rocephin] 2 gm Sodium Chloride 0.9% [Normal Saline] 100 ml IV Q24H dexAMETHasone 6 mg PO DAILY 03/09/20 14:05 CULTURE BLOOD [BC] Stat CULTURE BLOOD [BC] Stat Blood Culture x2 Reflex Set [OM.PC] Stat 03/09/20 21:00 Remdesivir (Eua) [Remdesivir (EUA)] 100 mg Sodium Chloride 0.9% [Normal Saline] 100 ml IV Q24H 03/10/20 05:11 C-REACTIVE PROTEIN [CHEM] AM CBC WITH AUTO DIFF [HEME] AM CMP [COMPREHENSIVE METABOLIC PN,CMP] [CHEM] AM D-DIMER QUANTITATIVE [COAG] AM FERRITIN [CHEM] AM LACTATE DEHYDROGENASE,LDH [CHEM] AM MAGNESIUM [CHEM] AM PHOSPHORUS [CHEM] AM 03/10/20 09:00 Cholecalciferol (Vitamin D3) [Vitamin D3] 10,000 unit PO DAILY 03/10/20 14:00 Azithromycin [Zithromax] 500 mg Sodium Chloride 0.9% [Normal Saline] 250 ml IV Q24H 03/11/20 05:11 C-REACTIVE PROTEIN [CHEM] AM CBC WITH AUTO DIFF [HEME] AM CMP [COMPREHENSIVE METABOLIC PN,CMP] [CHEM] AM MAGNESIUM [CHEM] AM PHOSPHORUS [CHEM] AM 03/12/20 05:11 C-REACTIVE PROTEIN [CHEM] AM CBC WITH AUTO DIFF [HEME] AM CMP [COMPREHENSIVE METABOLIC PN,CMP] [CHEM] AM MAGNESIUM [CHEM] AM PHOSPHORUS [CHEM] AM 03/13/20 05:11 C-REACTIVE PROTEIN [CHEM] AM CBC WITH AUTO DIFF [HEME] AM CMP [COMPREHENSIVE METABOLIC PN,CMP] [CHEM] AM MAGNESIUM [CHEM] AM PHOSPHORUS [CHEM] AM 03/14/20 05:11 C-REACTIVE PROTEIN [CHEM] AM CBC WITH AUTO DIFF [HEME] AM CMP [COMPREHENSIVE METABOLIC PN,CMP] [CHEM] AM MAGNESIUM [CHEM] AM PHOSPHORUS [CHEM] AM 03/15/20 05:11 C-REACTIVE PROTEIN [CHEM] AM CBC WITH AUTO DIFF [HEME] AM CMP [COMPREHENSIVE METABOLIC PN,CMP] [CHEM] AM MAGNESIUM [CHEM] AM PHOSPHORUS [CHEM] AM - Plan Plan:: Assessment May 08, 2020day of admission COVID-19 infection with hypoxemia * Symptoms started 6 days ago with fever and progressed to shortness of breath, cough, nausea, vomiting, and diarrhea * Mild respiratory distress with increased respiratory rate * Initial pulse ox on room air 84% * 1 L nasal cannula adequate to bring SPO2 up to 94% * Patient is able to keep fluids down but not solid foods. * Adequate urination * Chest x-ray consistent with bilateral pneumonia, but poor quality image secondary to poor inspiration * WBC 4.82, INR 1.0, d-dimer 0.32, CRP 4.9, ferritin 105, creatinine kinase 55, LDH 370, troponin I less than 0.017, proBNP 25, lactic acid 0.7 Microcytic anemia * Hemoglobin 10.3 with MCV of 70.8 and MCH 20.9. Microcytosis and hypochromasia was noted. * Normal ferritin of 105, but confounded by active COVID-19 infection * Menstrual cycles are generally normal in quality and only last 5 days. Vitamin D deficiency * 25 hydroxy vitamin D <0.05 Plan * Admit to [facility] on telemetry and continuous pulse ox * FiO2 to keep SPO2 between 88-95% * Remdesivir 200 mg IV x1 then 100 mg IV daily * Hold on using dexamethasone, antibiotics, tocilizumab secondary to requiring only 1 L nasal cannula and CRP less than 8. Hold on antibiotics because no signs of bacterial coinfection. * Monitor CBC, CMP, mag, d-dimer, CRP daily. * If CRP continues to climb her oxygen requirement continues to increase will consider dexamethasone and tocilizumab. * Encourage prone positioning * Ferrous sulfate 324 mg twice daily with vitamin C 250 mg twice daily * Vitamin D3 5000 international units daily * Procalcitonin * Troponin I in the morning * VTE prophylaxis with Lovenox 40 mg subcu daily * CODE STATUS: Full code * Length of stay minimum of 5 days to finish full course of remdesivir. Patient also will need to be off of requiring oxygen. May 09, 2020 Assessment COVID-19 infection with hypoxemia * Oxygen need and symptoms are worsening. * Increased respiratory rate and coughing. * Up to 3 to 4 L nasal cannula after ambulation. * D-dimer 0.32, fibrinogen 444, C-reactive protein 5.2, Elevated liver enzymes * AST 167, ALT 137 * Likely secondary to fatty liver disease, but also possibly due to coronavirus * Ultrasound not available on the weekends. Microcytic anemia * No change Hypokalemia * Potassium 3.3 Vitamin D deficiency Plan * Continue remdesivir 100 mg daily, day 2 of 5 * Start Rocephin 2 g every 24 hours x5 days and azithromycin 5 mg every 24 hours x3 days * Start dexamethasone 6 mg daily for 10 days because of worsening oxygen need. * Continue to hold off on tocilizumab unless oxygen requirements continue to increase and C-reactive protein is greater than 8 * Start albuterol 2 puffs every 4 hours as needed * Check ferritin, iron, total iron-binding capacity in the morning * CBC, CMP, mag, d-dimer, C-reactive protein, LDH in the morning * Increase vitamin D3 to 10,000 units daily for at least a week * VTE prophylaxis with Lovenox
[2020-03-09] MEDS: REMDESIVIR (EUA) 100 MG in Sodium Chloride 0.9% 100 ML IV SCH (20:10)
[2020-03-10] MEDS: Ascorbic Acid 500 MG Tab PO SCH ×2 (06:35→17:02)
[2020-03-10] MEDS: Ferrous Sulfate 324 MG Tab.EC PO SCH ×2 (06:35→17:03)
[2020-03-10] MEDS: Codeine/guaiFENesin 10-100 MG/5 ML Syrup 5 ML Cup PO PRN ×4 (06:35→23:55)
[2020-03-10] MEDS: Benzonatate 100 MG Cap PO PRN ×3 (06:35→23:55)
[2020-03-10] MEDS: Enoxaparin 40 MG/0.4 ML Syringe SUBCUT SCH (08:01)
[2020-03-10] MEDS: Dexamethasone 4 MG Tab PO SCH (08:02)
[2020-03-10] MEDS: Cholecalciferol (Vitamin D3) 5,000 UNIT Tab PO SCH (08:02)
--- NOTE | 2020-03-10 10:10 | CR ---
Chest: Portable view of the chest was obtained. Comparison: Prior chest x-ray of 03/08/20. Diffuse increased density on both sides of the chest is seen. Poor inspiratory study is noted. Slight increased atelectasis within the left base is also noted. Bony structures are grossly intact. Impression: 1. Increasing densities on both sides of the chest which is felt compatible with increasing areas of pneumonia and atelectasis. Diagnostic code #5 This report was dictated in MDT
[2020-03-10] MEDS: cefTRIAXone 2 GM in Sodium Chloride 0.9% 100 ML IV SCH (13:14)
[2020-03-10] MEDS: Azithromycin 500 MG in Sodium Chloride 0.9% 250 ML IV SCH (13:14)
--- NOTE | 2020-03-10 13:59 | PCM.PN ---
- General Info Date of Service: 03/10/20 Admission Dx/Problem (Free Text): Admission Diagnosis/Problem Admission Diagnosis/Problem Hypoxemia Subjective Update: Patient states that she is feeling well. She has some shortness of breath and the cough continues. Appetite is poor. She continues to have diarrhea. Patient did require increasing amounts of O2 overnight. After going to the bathroom, with oxygen on, when she returned to the bed she dropped into the low 80s and it took several minutes with FiO2 at 4.5 L/min to resolve her desaturation. Patient did feel dizzy and shortness of breath at the time. Functional Status: Reports: Pain Controlled - Review of Systems General: Reports: No Symptoms HEENT: Reports: No Symptoms Pulmonary: Reports: Shortness of Breath, Cough Cardiovascular: Reports: No Symptoms Gastrointestinal: Reports: No Symptoms Musculoskeletal: Reports: No Symptoms Neurological: Reports: No Symptoms - Patient Data Vitals - Most Recent: Last Vital Signs Temp 96.9 F 03/10/20 12:00 Pulse 73 03/10/20 06:45 Resp 18 03/10/20 12:00 BP 101/64 03/10/20 12:00 Pulse Ox 94 L 03/10/20 12:00 Weight - Most Recent: 118.388 kg I&O - Last 24 Hours: Intake & Output 03/09/20 03/10/20 03/10/20 22:59 06:59 14:59 Intake Total 1430 400 Balance 1430 400 Imaging Impressions - Last 24 Hours: One-view portable chest x-ray: Increasing densities on both sides of the chest which is felt compatible with increasing areas of pneumonia and atelectasis. Lab Results Last 24 Hours: Laboratory Results - last 24 hr 03/09/20 03/10/20 03/10/20 Range/Units 09:45 05:15 05:15 WBC 2.95 L (3.98-10.04) K/mm3 RBC 4.92 (3.98-5.22) M/mm3 Hgb 10.1 L (11.2-15.7) gm/dl Hct 35.0 (34.1-44.9) % MCV 71.1 L (79.4-94.8) fl MCH 20.5 L (25.6-32.2) pg MCHC 28.9 L (32.2-35.5) g/dl RDW Std Deviation 40.5 (36.4-46.3) fL Plt Count 398 H D (182-369) K/mm3 MPV 10.2 (9.4-12.3) fl Neut % (Auto) 43.4 (34.0-71.1) % Lymph % (Auto) 43.4 (19.3-51.7) % [place] % (Auto) 11.5 (4.7-12.5) % Eos % (Auto) 0 L (0.7-5.8) Baso % (Auto) 1.4 H (0.1-1.2) % Neut # (Auto) 1.28 L (1.56-6.13) K/mm3 Lymph # (Auto) 1.28 (1.18-3.74) K/mm3 [place] # (Auto) 0.34 (0.24-0.36) K/mm3 Eos # (Auto) 0.00 L (0.04-0.36) K/mm3 Baso # (Auto) 0.04 (0.01-0.08) K/mm3 Manual Slide Review Abnormal smear D-Dimer, Quantitative 0.35 (0.19-0.50) mg/L Sodium (136-145) mEq/L Potassium (3.5-5.1) mEq/L Chloride (98-107) mEq/L Carbon Dioxide (21-32) mEq/L Anion Gap (5-15) BUN (7-18) mg/dL Creatinine (0.55-1.02) mg/dL Est Cr Clr Drug Dosing mL/min Estimated GFR (MDRD) (>60) mL/min BUN/Creatinine Ratio (14-18) Glucose (74-106) mg/dL Calcium (8.5-10.1) mg/dL Phosphorus (2.6-4.7) mg/dL Magnesium (1.8-2.4) mg/dl Iron (50-170) ug/dL TIBC (100-400) ug/dL % Saturation (20-55) % Transferrin (202-364) mg/dL Ferritin (8-252) ng/ml Total Bilirubin (0.2-1.0) mg/dL AST (15-37) U/L ALT (14-59) U/L Alkaline Phosphatase (46-116) U/L Lactate Dehydrogenase (81-234) U/L C-Reactive Protein (<1.0) mg/dL Total Protein (6.4-8.2) g/dl Albumin (3.4-5.0) g/dl Globulin gm/dL Albumin/Globulin Ratio (1-2) Procalcitonin 0.05 (<0.10) ng/mL 03/10/20 03/10/20 03/10/20 Range/Units 05:15 05:15 05:15 WBC (3.98-10.04) K/mm3 RBC (3.98-5.22) M/mm3 Hgb (11.2-15.7) gm/dl Hct (34.1-44.9) % MCV (79.4-94.8) fl MCH (25.6-32.2) pg MCHC (32.2-35.5) g/dl RDW Std Deviation (36.4-46.3) fL Plt Count (182-369) K/mm3 MPV (9.4-12.3) fl Neut % (Auto) (34.0-71.1) % Lymph % (Auto) (19.3-51.7) % [place] % (Auto) (4.7-12.5) % Eos % (Auto) (0.7-5.8) Baso % (Auto) (0.1-1.2) % Neut # (Auto) (1.56-6.13) K/mm3 Lymph # (Auto) (1.18-3.74) K/mm3 [place] # (Auto) (0.24-0.36) K/mm3 Eos # (Auto) (0.04-0.36) K/mm3 Baso # (Auto) (0.01-0.08) K/mm3 Manual Slide Review D-Dimer, Quantitative (0.19-0.50) mg/L Sodium 138 (136-145) mEq/L Potassium 3.9 (3.5-5.1) mEq/L Chloride 101 (98-107) mEq/L Carbon Dioxide 27 (21-32) mEq/L Anion Gap 13.9 (5-15) BUN 9 (7-18) mg/dL Creatinine 0.7 (0.55-1.02) mg/dL Est Cr Clr Drug Dosing 121.55 mL/min Estimated GFR (MDRD) > 60 (>60) mL/min BUN/Creatinine Ratio 12.9 L (14-18) Glucose 141 H (74-106) mg/dL Calcium 8.4 L (8.5-10.1) mg/dL Phosphorus 3.7 (2.6-4.7) mg/dL Magnesium 2.1 (1.8-2.4) mg/dl Iron 18 L (50-170) ug/dL TIBC 374 (100-400) ug/dL % Saturation 5 L (20-55) % Transferrin 299 (202-364) mg/dL Ferritin 99 (8-252) ng/ml Total Bilirubin 0.1 L (0.2-1.0) mg/dL AST 110 H (15-37) U/L ALT 122 H (14-59) U/L Alkaline Phosphatase 58 (46-116) U/L Lactate Dehydrogenase 398 H (81-234) U/L C-Reactive Protein 4.2 H* (<1.0) mg/dL Total Protein 8.5 H (6.4-8.2) g/dl Albumin 3.3 L (3.4-5.0) g/dl Globulin 5.2 gm/dL Albumin/Globulin Ratio 0.6 L (1-2) Procalcitonin (<0.10) ng/mL Med Orders - Current: Current Medications Acetaminophen (Tylenol) 650 mg PO Q4H PRN PRN Reason: Pain (Mild 1-3)/fever Last Admin: 03/09/20 13:40 Dose: 650 mg Documented by: Albuterol (Proventil Hfa) 0 gm INH Q4H PRN PRN Reason: Shortness of Breath Last Admin: 03/09/20 14:09 Dose: 2 puff Documented by: Ascorbic Acid (Vitamin C) [address] [facility] Last Admin: 03/10/20 06:35 Dose: 250 mg Documented by: Benzonatate (Tessalon Perles) 100 mg PO QID PRN PRN Reason: Cough Last Admin: 03/10/20 13:14 Dose: 100 mg Documented by: Cholecalciferol (Vitamin D3) 10,[address] [facility] Last Admin: 03/10/20 08:02 Dose: 10,000 unit Documented by: Dexamethasone (Dexamethasone) [address] [facility] Last Admin: 03/10/20 08:02 Dose: 6 mg Documented by: Enoxaparin Sodium (Lovenox) [address] [facility] Last Admin: 03/10/20 08:01 Dose: 40 mg Documented by: Ferrous Sulfate (Ferrous Sulfate) [address] [facility] Last Admin: 03/10/20 06:35 Dose: 324 mg Documented by: Guaifenesin/Codeine Phosphate (Robitussin Ac) 5 ml PO Q4H PRN PRN Reason: Cough Last Admin: 03/10/20 09:20 Dose: 5 ml Documented by: REMDESIVIR (EUA) 100 mg/ (Sodium Chloride) 100 mls @ 100 mls/hr IV Q24H [facility] Stop: 03/12/20 21:59 Last Admin: 03/09/20 20:10 Dose: 100 mls/hr Documented by: Ceftriaxone Sodium 2 gm/ (Sodium Chloride) 100 mls @ 200 mls/hr IV Q24H [facility] Last Admin: 03/10/20 13:14 Dose: 200 mls/hr Documented by: Azithromycin 500 mg/ Sodium (Chloride) 250 mls @ 250 mls/hr IV Q24H [facility] Stop: 03/12/20 14:01 Last Admin: 03/10/20 13:14 Dose: 250 mls/hr Documented by: Ondansetron HCl (Zofran) 4 mg IV Q4H PRN PRN Reason: Nausea/Vomiting Sodium Chloride (Saline Flush) 10 ml FLUSH ASDIRECTED PRN PRN Reason: Keep Vein Open Last Admin: 03/08/20 17:41 Dose: 10 ml Documented by: Discontinued Medications Cholecalciferol (Vitamin D3) 5,[address] [facility] Last Admin: 03/09/20 09:13 Dose: 5,000 unit Documented by: REMDESIVIR (EUA) 200 mg/ (Sodium Chloride) 250 mls @ 250 mls/hr IV ONETIME ONE Stop: 03/08/20 21:59 Last Admin: 03/08/20 21:13 Dose: 250 mls/hr Documented by: Azithromycin 500 mg/ Sodium (Chloride) 250 mls @ 250 mls/hr IV ONETIME ONE Stop: 03/09/20 14:50 Last Admin: 03/09/20 14:33 Dose: 250 mls/hr Documented by: Ondansetron HCl (Zofran Odt) 4 mg PO ONETIME ONE Stop: 03/08/20 17:16 Last Admin: 03/08/20 17:44 Dose: Not Given Documented by: Ondansetron HCl (Zofran) Confirm Administered Dose 4 mg .ROUTE .STK-MED ONE Stop: 03/08/20 17:41 Last Admin: 03/08/20 17:44 Dose: Not Given Documented by: Ondansetron HCl (Zofran) 4 mg IVPUSH ONETIME ONE Stop: 03/08/20 17:45 Last Admin: 03/08/20 17:45 Dose: 4 mg Documented by: Potassium Chloride (Klor-Con M20) 40 meq PO ONETIME ONE Stop: 03/09/20 10:30 Last Admin: 03/09/20 12:45 Dose: 40 meq Documented by: - Exam Quality Assessment: Supplemental Oxygen General: Alert, Oriented HEENT: Pupils Equal, Mucous Membr. Moist/[place] Lungs: Normal Respiratory Effort, Decreased Breath Sounds, Wheezing Cardiovascular: Regular Rate, Regular Rhythm GI/Abdominal Exam: Normal Bowel Sounds, Soft, Non-Tender, No Distention, No Abnormal Bruit Extremities: Normal Inspection, Normal Range of Motion, Non-Tender, No Pedal Edema, Normal Capillary Refill Skin: Warm, Dry, Intact Neurological: No New Focal Deficit Psy/Mental Status: Alert, Normal Affect, Normal Mood Sepsis Event Note - Evaluation Sepsis Screening Result: No Definite Risk - Focused Exam Vital Signs: Vital Signs Temp Pulse Resp BP BP Pulse Ox 03/10/20 12:00 96.9 F 18 101/64 94 L 03/10/20 08:00 96.5 F L 20 123/73 92 L 03/10/20 06:45 73 95 03/10/20 06:30 68 96 03/10/20 06:15 71 93 L 03/10/20 06:00 82 91 L 03/10/20 05:45 78 90 L 03/10/20 05:30 76 92 L 03/10/20 05:15 83 88 L 03/10/20 05:07 89 88 L 03/10/20 04:47 78 03/10/20 04:45 75 94 L 03/10/20 04:30 63 93 L 03/10/20 04:15 65 95 03/10/20 04:00 97.5 F 18 112/46 L 95 03/10/20 03:45 62 95 03/10/20 03:30 67 95 03/10/20 03:15 65 95 03/10/20 03:00 66 95 03/10/20 02:45 66 95 03/10/20 02:30 66 95 03/10/20 02:15 65 94 L 03/10/20 02:00 72 94 L - Problem List & Annotations (1) 2019 novel coronavirus detected SNOMED Code(s): 894803997, 093117834 Code(s): U07.1 - COVID-19 Status: Acute Current Visit: Yes (2) Hypoxia SNOMED Code(s): 351206889 Code(s): R09.02 - HYPOXEMIA Status: Acute Current Visit: Yes (3) Microcytic hypochromic anemia SNOMED Code(s): 77008014 Code(s): D50.9 - IRON DEFICIENCY ANEMIA, UNSPECIFIED Status: Acute Current Visit: Yes (4) Vitamin D deficiency SNOMED Code(s): 54080274 Code(s): E55.9 - VITAMIN D DEFICIENCY, UNSPECIFIED Status: Acute Current Visit: Yes - Problem List Review Problem List Initiated/Reviewed/Updated: Yes - My Orders Last 24 Hours: My Active Orders 03/09/20 13:54 Albuterol [Proventil HFA] See Dose Instructions INH Q4H PRN 03/09/20 13:55 RT Post Treatment Assessment [RC] Click to Edit RT Pre-Treatment Assessment [RC] Click to Edit 03/09/20 14:00 [email or web address] [Rocephin] 2 gm Sodium Chloride 0.9% [Normal Saline] 100 ml IV Q24H dexAMETHasone 6 mg PO DAILY 03/09/20 14:05 Blood Culture x2 Reflex Set [OM.PC] Stat 03/09/20 14:45 CULTURE BLOOD [BC] Stat 03/09/20 14:58 CULTURE BLOOD [BC] Stat 03/09/20 21:00 Remdesivir (Eua) [Remdesivir (EUA)] 100 mg Sodium Chloride 0.9% [Normal Saline] 100 ml IV Q24H 03/10/20 Breakfast Regular Diet [DIET] 03/10/20 09:00 Cholecalciferol (Vitamin D3) [Vitamin D3] 10,000 unit PO DAILY 03/10/20 13:53 RT Incentive Spirometry [RC] ASDIRECTED 03/10/20 14:00 Azithromycin [Zithromax] 500 mg Sodium Chloride 0.9% [Normal Saline] 250 ml IV Q24H 03/11/20 05:11 C-REACTIVE PROTEIN [CHEM] AM CBC WITH AUTO DIFF [HEME] AM CMP [COMPREHENSIVE METABOLIC PN,CMP] [CHEM] AM MAGNESIUM [CHEM] AM PHOSPHORUS [CHEM] AM 03/12/20 05:11 C-REACTIVE PROTEIN [CHEM] AM CBC WITH AUTO DIFF [HEME] AM CMP [COMPREHENSIVE METABOLIC PN,CMP] [CHEM] AM MAGNESIUM [CHEM] AM PHOSPHORUS [CHEM] AM 03/13/20 05:11 C-REACTIVE PROTEIN [CHEM] AM CBC WITH AUTO DIFF [HEME] AM CMP [COMPREHENSIVE METABOLIC PN,CMP] [CHEM] AM MAGNESIUM [CHEM] AM PHOSPHORUS [CHEM] AM 03/14/20 05:11 C-REACTIVE PROTEIN [CHEM] AM CBC WITH AUTO DIFF [HEME] AM CMP [COMPREHENSIVE METABOLIC PN,CMP] [CHEM] AM MAGNESIUM [CHEM] AM PHOSPHORUS [CHEM] AM 03/15/20 05:11 C-REACTIVE PROTEIN [CHEM] AM CBC WITH AUTO DIFF [HEME] AM CMP [COMPREHENSIVE METABOLIC PN,CMP] [CHEM] AM MAGNESIUM [CHEM] AM PHOSPHORUS [CHEM] AM - Plan Plan:: Assessment May 08, 2020day of admission COVID-19 infection with hypoxemia * Symptoms started 6 days ago with fever and progressed to shortness of breath, cough, nausea, vomiting, and diarrhea * Mild respiratory distress with increased respiratory rate * Initial pulse ox on room air 84% * 1 L nasal cannula adequate to bring SPO2 up to 94% * Patient is able to keep fluids down but not solid foods. * Adequate urination * Chest x-ray consistent with bilateral pneumonia, but poor quality image secondary to poor inspiration * WBC 4.82, INR 1.0, d-dimer 0.32, CRP 4.9, ferritin 105, creatinine kinase 55, LDH 370, troponin I less than 0.017, proBNP 25, lactic acid 0.7 Microcytic anemia * Hemoglobin 10.3 with MCV of 70.8 and MCH 20.9. Microcytosis and hypochromasia was noted. * Normal ferritin of 105, but confounded by active COVID-19 infection * Menstrual cycles are generally normal in quality and only last 5 days. Vitamin D deficiency * 25 hydroxy vitamin D <0.05 Plan * Admit to [facility] on telemetry and continuous pulse ox * FiO2 to keep SPO2 between 88-95% * Remdesivir 200 mg IV x1 then 100 mg IV daily * Hold on using dexamethasone, antibiotics, tocilizumab secondary to requiring only 1 L nasal cannula and CRP less than 8. Hold on antibiotics because no signs of bacterial coinfection. * Monitor CBC, CMP, mag, d-dimer, CRP daily. * If CRP continues to climb her oxygen requirement continues to increase will consider dexamethasone and tocilizumab. * Encourage prone positioning * Ferrous sulfate 324 mg twice daily with vitamin C 250 mg twice daily * Vitamin D3 5000 international units daily * Procalcitonin * Troponin I in the morning * VTE prophylaxis with Lovenox 40 mg subcu daily * CODE STATUS: Full code * Length of stay minimum of 5 days to finish full course of remdesivir. Patient also will need to be off of requiring oxygen. May 09, 2020 Assessment COVID-19 infection with hypoxemia * Oxygen need and symptoms are worsening. * Increased respiratory rate and coughing. * Up to 3 to 4 L nasal cannula after ambulation. * D-dimer 0.32, fibrinogen 444, C-reactive protein 5.2, Elevated liver enzymes * AST 167, ALT 137 * Likely secondary to fatty liver disease, but also possibly due to coronavirus * Ultrasound not available on the weekends. Microcytic anemia * No change Hypokalemia * Potassium 3.3 Vitamin D deficiency May 10, 2020 Severe COVID 19 infection with worsening hypoxemia COVID-19 pneumonia with atelectasis * Chest x-ray shows worsening atelectasis and pneumonia * Started on dexamethasone yesterday and continues on remdesivir * FiO2 need increased with activity, but it is coming down at rest. Currently at 3 L nasal cannula * White count decreased at 2.95, d-dimer normal 0.35, C-reactive protein decreased 4.2 LDH increased 398 * Oxygen saturations between 90 and 95% at rest on 3 L nasal cannula * Day 3 of remdesivir and day 2 of dexamethasone * Rocephin and azithromycin day 2 Elevated liver enzymes * AST 122, ALT 110, normal alkaline phosphatase 58 * Continue monitoring Iron deficiency anemia * Iron low at 18 with percent saturation 5% Hypokalemiaresolved Plan * Continue remdesivir 100 mg daily, day 3 of 5 * Continue Rocephin 2 g every 24 hours x5 days and azithromycin 5 mg every 24 hours x3 days * Continue dexamethasone 6 mg daily for 10 days because of worsening oxygen need. * Continue to hold off on tocilizumab unless oxygen requirements continue to increase and C-reactive protein is greater than 8 * Start albuterol 2 puffs every 4 hours as needed * CBC, CMP, mag, d-dimer, C-reactive protein, in the morning * VTE prophylaxis with Lovenox * Full code
[2020-03-10] MEDS: REMDESIVIR (EUA) 100 MG in Sodium Chloride 0.9% 100 ML IV SCH (20:04)
[2020-03-10] MEDS ORDERED: Tocilizumab 400 MG/20 ML SDV SUBCUT ONE (20:26)
--- NOTE | 2020-03-10 23:50 | PCM.SN.2 ---
- Free Text/Narrative Note: [facility] oxygen requirements up to 6 L nasal cannula to keep her oxygen saturation above 90%. Decision to give Actemra due to worsening symptoms. Patient states that she does not feel any worse and is no more short of breath but does continue to have a cough. I counseled her that I would like her to go to [place] to get convalescent plasma, and a bed was obtained. Patient stated after arrangements were made that she did not want to go to [facility]. She was counseled about the risk of worsening because of not receiving convalescent plasma. Patient voiced understanding.
[2020-03-11] MEDS: Ferrous Sulfate 324 MG Tab.EC PO SCH ×2 (06:03→17:56)
[2020-03-11] MEDS: Ascorbic Acid 500 MG Tab PO SCH ×2 (06:03→15:21)
[2020-03-11] MEDS: Enoxaparin 40 MG/0.4 ML Syringe SUBCUT SCH (08:15)
[2020-03-11] MEDS: Dexamethasone 4 MG Tab PO SCH (08:15)
[2020-03-11] MEDS: Codeine/guaiFENesin 10-100 MG/5 ML Syrup 5 ML Cup PO PRN ×3 (08:15→20:00)
[2020-03-11] MEDS: Cholecalciferol (Vitamin D3) 5,000 UNIT Tab PO SCH (08:15)
[2020-03-11] MEDS: cefTRIAXone 2 GM in Sodium Chloride 0.9% 100 ML IV SCH (14:42)
[2020-03-11] MEDS: Azithromycin 500 MG in Sodium Chloride 0.9% 250 ML IV SCH (14:42)
[2020-03-11] MEDS: Benzonatate 100 MG Cap PO PRN ×2 (15:22→20:00)
--- NOTE | 2020-03-11 17:16 | PCM.PN ---
- General Info Date of Service: 03/11/20 Admission Dx/Problem (Free Text): Admission Diagnosis/Problem Admission Diagnosis/Problem Hypoxemia Subjective Update: Patient improved overnight with her oxygen requirements decreasing from 6 L/min to 4 L/min. Cough has improved. Functional Status: Reports: Pain Controlled - Review of Systems General: Reports: No Symptoms HEENT: Reports: No Symptoms Pulmonary: Reports: Cough Cardiovascular: Reports: No Symptoms Gastrointestinal: Reports: No Symptoms Musculoskeletal: Reports: No Symptoms Neurological: Reports: No Symptoms Psychiatric: Reports: No Symptoms - Patient Data Vitals - Most Recent: Last Vital Signs Temp 97.4 F 03/11/20 15:50 Pulse 58 L 03/11/20 12:26 Resp 18 03/11/20 15:50 BP 104/57 L 03/11/20 15:50 Pulse Ox 93 L 03/11/20 16:49 Weight - Most Recent: 119.48 kg I&O - Last 24 Hours: Intake & Output 03/11/20 03/11/20 03/11/20 06:59 14:59 22:59 Intake Total 200 336 Balance 200 336 Lab Results Last 24 Hours: Laboratory Results - last 24 hr 03/11/20 03/11/20 Range/Units 05:09 05:09 WBC 2.95 L (3.98-10.04) K/mm3 RBC 4.35 (3.98-5.22) M/mm3 Hgb 8.9 L (11.2-15.7) gm/dl Hct 31.3 L (34.1-44.9) % MCV 72.0 L (79.4-94.8) fl MCH 20.5 L (25.6-32.2) pg MCHC 28.4 L (32.2-35.5) g/dl RDW Std Deviation 40.8 (36.4-46.3) fL Plt Count 414 H (182-369) K/mm3 MPV 10.5 (9.4-12.3) fl Neut % (Auto) 40.8 (34.0-71.1) % Lymph % (Auto) 47.1 (19.3-51.7) % [place] % (Auto) 11.5 (4.7-12.5) % Eos % (Auto) 0 L (0.7-5.8) Baso % (Auto) 0.3 (0.1-1.2) % Neut # (Auto) 1.20 L (1.56-6.13) K/mm3 Lymph # (Auto) 1.39 (1.18-3.74) K/mm3 [place] # (Auto) 0.34 (0.24-0.36) K/mm3 Eos # (Auto) 0.00 L (0.04-0.36) K/mm3 Baso # (Auto) 0.01 (0.01-0.08) K/mm3 Manual Slide Review Abnormal smear Sodium 138 (136-145) mEq/L Potassium 3.5 (3.5-5.1) mEq/L Chloride 102 (98-107) mEq/L Carbon Dioxide 28 (21-32) mEq/L Anion Gap 11.5 (5-15) BUN 8 (7-18) mg/dL Creatinine 0.5 L (0.55-1.02) mg/dL Est Cr Clr Drug Dosing 170.17 mL/min Estimated GFR (MDRD) > 60 (>60) mL/min BUN/Creatinine Ratio 16.0 (14-18) Glucose 118 H (74-106) mg/dL Calcium 8.1 L (8.5-10.1) mg/dL Phosphorus 3.8 (2.6-4.7) mg/dL Magnesium 1.9 (1.8-2.4) mg/dl Total Bilirubin 0.2 (0.2-1.0) mg/dL AST 73 H (15-37) U/L ALT 89 H (14-59) U/L Alkaline Phosphatase 51 (46-116) U/L C-Reactive Protein 1.6 H* (<1.0) mg/dL Total Protein 7.6 (6.4-8.2) g/dl Albumin 2.9 L (3.4-5.0) g/dl Globulin 4.7 gm/dL Albumin/Globulin Ratio 0.6 L (1-2) Hernandez Results Last 24 Hours: Microbiology 03/09/20 14:58 Aerobic Blood Culture - Preliminary Blood - Venous - Lab Draw NO GROWTH AFTER 2 DAYS Anaerobic Blood Culture - Preliminary NO GROWTH AFTER 2 DAYS 03/09/20 14:45 Aerobic Blood Culture - Preliminary Blood - Venous NO GROWTH AFTER 2 DAYS Anaerobic Blood Culture - Preliminary NO GROWTH AFTER 2 DAYS Med Orders - Current: Current Medications Acetaminophen (Tylenol) 650 mg PO Q4H PRN PRN Reason: Pain (Mild 1-3)/fever Last Admin: 03/09/20 13:40 Dose: 650 mg Documented by: Albuterol (Proventil Hfa) 0 gm INH Q4H PRN PRN Reason: Shortness of Breath Last Admin: 03/09/20 14:09 Dose: 2 puff Documented by: Ascorbic Acid (Vitamin C) 250 mg PO BIDAC [facility] Last Admin: 03/11/20 15:21 Dose: 250 mg Documented by: Benzonatate (Tessalon Perles) 100 mg PO QID PRN PRN Reason: Cough Last Admin: 03/11/20 15:22 Dose: 100 mg Documented by: Cholecalciferol (Vitamin D3) 10,000 unit PO DAILY [facility] Last Admin: 03/11/20 08:15 Dose: 10,000 unit Documented by: Dexamethasone (Dexamethasone) 6 mg PO DAILY [facility] Last Admin: 03/11/20 08:15 Dose: 6 mg Documented by: Enoxaparin Sodium (Lovenox) 40 mg SUBCUT DAILY [facility] Last Admin: 03/11/20 08:15 Dose: 40 mg Documented by: Ferrous Sulfate (Ferrous Sulfate) 324 mg PO BIDMEALS [facility] Last Admin: 03/11/20 06:03 Dose: 324 mg Documented by: Guaifenesin/Codeine Phosphate (Robitussin Ac) 5 ml PO Q4H PRN PRN Reason: Cough Last Admin: 03/11/20 15:22 Dose: 5 ml Documented by: REMDESIVIR (EUA) 100 mg/ (Sodium Chloride) 100 mls @ 100 mls/hr IV Q24H [facility] Stop: 03/12/20 21:59 Last Admin: 03/10/20 20:04 Dose: 100 mls/hr Documented by: Ceftriaxone Sodium 2 gm/ (Sodium Chloride) 100 mls @ 200 mls/hr IV Q24H [facility] Last Admin: 03/11/20 14:42 Dose: 200 mls/hr Documented by: Azithromycin 500 mg/ Sodium (Chloride) 250 mls @ 250 mls/hr IV Q24H [facility] Stop: 03/12/20 14:01 Last Admin: 03/11/20 14:42 Dose: 250 mls/hr Documented by: Ondansetron HCl (Zofran) 4 mg IV Q4H PRN PRN Reason: Nausea/Vomiting Sodium Chloride (Saline Flush) 10 ml FLUSH ASDIRECTED PRN PRN Reason: Keep Vein Open Last Admin: 03/08/20 17:41 Dose: 10 ml Documented by: Discontinued Medications Cholecalciferol (Vitamin D3) 5,000 unit PO DAILY SONYA Last Admin: 03/09/20 09:13 Dose: 5,000 unit Documented by: REMDESIVIR (EUA) 200 mg/ (Sodium Chloride) 250 mls @ 250 mls/hr IV ONETIME ONE Stop: 03/08/20 21:59 Last Admin: 03/08/20 21:13 Dose: 250 mls/hr Documented by: Azithromycin 500 mg/ Sodium (Chloride) 250 mls @ 250 mls/hr IV ONETIME ONE Stop: 03/09/20 14:50 Last Admin: 03/09/20 14:33 Dose: 250 mls/hr Documented by: Tocilizumab 800 mg/ Sodium (Chloride) 100 mls @ 100 mls/hr IV ONETIME ONE Stop: 03/10/20 22:59 Tocilizumab 800 mg/ Sodium (Chloride) 100 mls @ 100 mls/hr IV ONETIME ONE Stop: 03/10/20 22:59 Last Admin: 03/10/20 22:38 Dose: 100 mls/hr Documented by: Ondansetron HCl (Zofran Odt) 4 mg PO ONETIME ONE Stop: 03/08/20 17:16 Last Admin: 03/08/20 17:44 Dose: Not Given Documented by: Ondansetron HCl (Zofran) Confirm Administered Dose 4 mg .ROUTE .STK-MED ONE Stop: 03/08/20 17:41 Last Admin: 03/08/20 17:44 Dose: Not Given Documented by: Ondansetron HCl (Zofran) 4 mg IVPUSH ONETIME ONE Stop: 03/08/20 17:45 Last Admin: 03/08/20 17:45 Dose: 4 mg Documented by: Potassium Chloride (Klor-Con M20) 40 meq PO ONETIME ONE Stop: 03/09/20 10:30 Last Admin: 03/09/20 12:45 Dose: 40 meq Documented by: - Exam General: Alert, Oriented HEENT: Pupils Equal, Mucous Membr. Moist/[place] Neck: Supple Lungs: Clear to Auscultation, Normal Respiratory Effort, Decreased Breath Sounds Cardiovascular: Regular Rate, Regular Rhythm GI/Abdominal Exam: Normal Bowel Sounds, Soft, Non-Tender, No Distention Back Exam: Normal Inspection Extremities: Normal Inspection, Normal Range of Motion, Non-Tender, No Pedal Edema, Normal Capillary Refill Skin: Warm, Dry, Intact Neurological: No New Focal Deficit Psy/Mental Status: Alert, Normal Affect, Normal Mood Sepsis Event Note - Evaluation Sepsis Screening Result: No Definite Risk - Focused Exam Vital Signs: Vital Signs Temp Pulse Resp BP Pulse Ox Pulse Ox 03/11/20 16:49 93 L 03/11/20 15:50 97.4 F 18 104/57 L 94 L 03/11/20 13:00 94 L 03/11/20 12:26 58 L 18 111/60 92 L 03/11/20 10:00 97.1 F 19 111/60 94 L 03/11/20 09:00 95 - Problem List & Annotations (1) 2019 novel coronavirus detected SNOMED Code(s): 677710354, 144463878 Code(s): U07.1 - COVID-19 Status: Acute Current Visit: Yes (2) Hypoxia SNOMED Code(s): 153763634 Code(s): R09.02 - HYPOXEMIA Status: Acute Current Visit: Yes (3) Microcytic hypochromic anemia SNOMED Code(s): 66129424 Code(s): D50.9 - IRON DEFICIENCY ANEMIA, UNSPECIFIED Status: Acute Current Visit: Yes (4) Vitamin D deficiency SNOMED Code(s): 61954208 Code(s): E55.9 - VITAMIN D DEFICIENCY, UNSPECIFIED Status: Acute Current Visit: Yes - Problem List Review Problem List Initiated/Reviewed/Updated: Yes - My Orders Last 24 Hours: My Active Orders 03/11/20 13:19 EKG 12 Lead [EKG Documentation Completion] [RC] STAT 03/12/20 05:11 C-REACTIVE PROTEIN [CHEM] AM CBC WITH AUTO DIFF [HEME] AM CMP [COMPREHENSIVE METABOLIC PN,CMP] [CHEM] AM MAGNESIUM [CHEM] AM PHOSPHORUS [CHEM] AM 03/13/20 05:11 C-REACTIVE PROTEIN [CHEM] AM CBC WITH AUTO DIFF [HEME] AM CMP [COMPREHENSIVE METABOLIC PN,CMP] [CHEM] AM MAGNESIUM [CHEM] AM PHOSPHORUS [CHEM] AM 03/14/20 05:11 C-REACTIVE PROTEIN [CHEM] AM CBC WITH AUTO DIFF [HEME] AM CMP [COMPREHENSIVE METABOLIC PN,CMP] [CHEM] AM MAGNESIUM [CHEM] AM PHOSPHORUS [CHEM] AM 03/15/20 05:11 C-REACTIVE PROTEIN [CHEM] AM CBC WITH AUTO DIFF [HEME] AM CMP [COMPREHENSIVE METABOLIC PN,CMP] [CHEM] AM MAGNESIUM [CHEM] AM PHOSPHORUS [CHEM] AM - Plan Plan:: Assessment March 08, 2020day of admission COVID-19 infection with hypoxemia * Symptoms started 6 days ago with fever and progressed to shortness of breath, cough, nausea, vomiting, and diarrhea * Mild respiratory distress with increased respiratory rate * Initial pulse ox on room air 84% * 1 L nasal cannula adequate to bring SPO2 up to 94% * Patient is able to keep fluids down but not solid foods. * Adequate urination * Chest x-ray consistent with bilateral pneumonia, but poor quality image secondary to poor inspiration * WBC 4.82, INR 1.0, d-dimer 0.32, CRP 4.9, ferritin 105, creatinine kinase 55, LDH 370, troponin I less than 0.017, proBNP 25, lactic acid 0.7 Microcytic anemia * Hemoglobin 10.3 with MCV of 70.8 and MCH 20.9. Microcytosis and hypochromasia was noted. * Normal ferritin of 105, but confounded by active COVID-19 infection * Menstrual cycles are generally normal in quality and only last 5 days. Vitamin D deficiency * 25 hydroxy vitamin D <0.05 Plan * Admit to [facility] on telemetry and continuous pulse ox * FiO2 to keep SPO2 between 88-95% * Remdesivir 200 mg IV x1 then 100 mg IV daily * Hold on using dexamethasone, antibiotics, tocilizumab secondary to requiring only 1 L nasal cannula and CRP less than 8. Hold on antibiotics because no signs of bacterial coinfection. * Monitor CBC, CMP, mag, d-dimer, CRP daily. * If CRP continues to climb her oxygen requirement continues to increase will c onsider dexamethasone and tocilizumab. * Encourage prone positioning * Ferrous sulfate 324 mg twice daily with vitamin C 250 mg twice daily * Vitamin D3 5000 international units daily * Procalcitonin * Troponin I in the morning * VTE prophylaxis with Lovenox 40 mg subcu daily * CODE STATUS: Full code * Length of stay minimum of 5 days to finish full course of remdesivir. Patient also will need to be off of requiring oxygen. March 09, 2020 Assessment COVID-19 infection with hypoxemia * Oxygen need and symptoms are worsening. * Increased respiratory rate and coughing. * Up to 3 to 4 L nasal cannula after ambulation. * D-dimer 0.32, fibrinogen 444, C-reactive protein 5.2, Elevated liver enzymes * AST 167, ALT 137 * Likely secondary to fatty liver disease, but also possibly due to coronavirus * Ultrasound not available on the weekends. Microcytic anemia * No change Hypokalemia * Potassium 3.3 Vitamin D deficiency March 10, 2020 Severe COVID 19 infection with worsening hypoxemia COVID-19 pneumonia with atelectasis * Chest x-ray shows worsening atelectasis and pneumonia * Started on dexamethasone yesterday and continues on remdesivir * FiO2 need increased with activity, but it is coming down at rest. Currently at 3 L nasal cannula * White count decreased at 2.95, d-dimer normal 0.35, C-reactive protein decreased 4.2 LDH increased 398 * Oxygen saturations between 90 and 95% at rest on 3 L nasal cannula * Day 3 of remdesivir and day 2 of dexamethasone * Rocephin and azithromycin day 2 Elevated liver enzymes * AST 122, ALT 110, normal alkaline phosphatase 58 * Continue monitoring Iron deficiency anemia * Iron low at 18 with percent saturation 5% Hypokalemiaresolved March 11, 2020 Severe COVID-19 infection with hypoxemiaimproved COVID-19 pneumonia with atelectasis * Patient has had a decrease in oxygen requirements overnight. She is down to 4 L nasal cannula and saturations are in the mid 90s * Continues on remdesivir and dexamethasone. * Received 1 dose of Actemra last night because of worsening hypoxemia * C-reactive protein is down to 1.6, WBC 2.95 Elevated liver enzymesimproving * AST 73, ALT 89 Iron deficiency anemia * Decrease in hemoglobin to 8.9 * Patient is currently on her menstrual cycle and it is severe likely worsened by Lovenox for VTE prophylaxis. Unfortunately bleeding risk needs to be weighed with increased clotting risk secondary to COVID. Plan * Continue remdesivir 100 mg daily, day 4 of 5 * Continue Rocephin 2 g every 24 hours x5 days and azithromycin 500 mg every 24 hours x3 days * Continue dexamethasone 6 mg daily for 10 days because of worsening oxygen need. * Actemra given last night will consider another dose if symptoms worsen * Continue albuterol 2 puffs every 4 hours as needed * FiO2 to keep pulse ox between 88 and 95% * CBC, CMP, mag, d-dimer, C-reactive protein, in the morning * Recheck hemoglobin in the morning and if continues to drop may have to hold Lovenox. * VTE prophylaxis with Lovenox * Full code
[2020-03-11] MEDS: REMDESIVIR (EUA) 100 MG in Sodium Chloride 0.9% 100 ML IV SCH (19:59)
[2020-03-12] MEDS: Codeine/guaiFENesin 10-100 MG/5 ML Syrup 5 ML Cup PO PRN ×2 (06:30→20:41)
[2020-03-12] MEDS: Benzonatate 100 MG Cap PO PRN ×2 (06:30→20:41)
[2020-03-12] MEDS: Ferrous Sulfate 324 MG Tab.EC PO SCH ×2 (06:31→17:03)
[2020-03-12] MEDS: Ascorbic Acid 500 MG Tab PO SCH ×2 (06:31→15:00)
[2020-03-12] MEDS: Dexamethasone 4 MG Tab PO SCH (08:44)
[2020-03-12] MEDS: Enoxaparin 40 MG/0.4 ML Syringe SUBCUT SCH (08:46)
[2020-03-12] MEDS: Cholecalciferol (Vitamin D3) 5,000 UNIT Tab PO SCH (08:49)
--- NOTE | 2020-03-12 12:30 | PCM.PN ---
- General Info Date of Service: 03/12/20 Admission Dx/Problem (Free Text): Admission Diagnosis/Problem Admission Diagnosis/Problem Hypoxemia Subjective Update: Patient's respiratory status has improved. She is coughing less, able to speak in longer sentences without coughing or being short of breath, and oxygen requirement has decreased. Appetite is still poor. She is taking adequately orally though. - Review of Systems General: Reports: No Symptoms HEENT: Reports: No Symptoms Pulmonary: Reports: Shortness of Breath, Cough Cardiovascular: Reports: No Symptoms Gastrointestinal: Reports: No Symptoms Musculoskeletal: Reports: No Symptoms Skin: Reports: No Symptoms Neurological: Reports: No Symptoms - Patient Data Vitals - Most Recent: Last Vital Signs Temp 97.6 F 03/12/20 08:54 Pulse 58 L 03/11/20 12:26 Resp 21 H 03/12/20 08:54 BP 113/60 03/12/20 08:54 Pulse Ox 96 03/12/20 08:54 Weight - Most Recent: 117.48 kg I&O - Last 24 Hours: Intake & Output 03/11/20 03/12/20 03/12/20 22:59 06:59 14:59 Intake Total 1116 500 Balance 1116 500 Lab Results Last 24 Hours: Laboratory Results - last 24 hr 03/12/20 03/12/20 Range/Units 06:21 06:21 WBC 4.34 (3.98-10.04) K/mm3 RBC 4.48 (3.98-5.22) M/mm3 Hgb 9.3 L (11.2-15.7) gm/dl Hct 32.5 L (34.1-44.9) % MCV 72.5 L (79.4-94.8) fl MCH 20.8 L (25.6-32.2) pg MCHC 28.6 L (32.2-35.5) g/dl RDW Std Deviation 40.7 (36.4-46.3) fL Plt Count 463 H (182-369) K/mm3 MPV 9.7 (9.4-12.3) fl Neut % (Auto) 46.0 (34.0-71.1) % Lymph % (Auto) 44.0 (19.3-51.7) % [place] % (Auto) 9.4 (4.7-12.5) % Eos % (Auto) 0.2 L (0.7-5.8) Baso % (Auto) 0.2 (0.1-1.2) % Neut # (Auto) 1.99 (1.56-6.13) K/mm3 Lymph # (Auto) 1.91 (1.18-3.74) K/mm3 [place] # (Auto) 0.41 H (0.24-0.36) K/mm3 Eos # (Auto) 0.01 L (0.04-0.36) K/mm3 Baso # (Auto) 0.01 (0.01-0.08) K/mm3 Manual Slide Review Abnormal smear Sodium 139 (136-145) mEq/L Potassium 3.5 (3.5-5.1) mEq/L Chloride 102 (98-107) mEq/L Carbon Dioxide 29 (21-32) mEq/L Anion Gap 11.5 (5-15) BUN 10 (7-18) mg/dL Creatinine 0.5 L (0.55-1.02) mg/dL Est Cr Clr Drug Dosing 170.17 mL/min Estimated GFR (MDRD) > 60 (>60) mL/min BUN/Creatinine Ratio 20.0 H (14-18) Glucose 117 H (74-106) mg/dL Magnesium 2.0 (1.8-2.4) mg/dl Total Bilirubin 0.1 L (0.2-1.0) mg/dL AST 113 H (15-37) U/L ALT 97 H (14-59) U/L Alkaline Phosphatase 49 (46-116) U/L C-Reactive Protein 0.9 (<1.0) mg/dL Total Protein 7.6 (6.4-8.2) g/dl Albumin 3.0 L (3.4-5.0) g/dl Globulin 4.6 gm/dL Albumin/Globulin Ratio 0.7 L (1-2) Hernandez Results Last 24 Hours: Microbiology 03/09/20 14:58 Aerobic Blood Culture - Preliminary Blood - Venous - Lab Draw NO GROWTH AFTER 2 DAYS Anaerobic Blood Culture - Preliminary NO GROWTH AFTER 2 DAYS 03/09/20 14:45 Aerobic Blood Culture - Preliminary Blood - Venous NO GROWTH AFTER 2 DAYS Anaerobic Blood Culture - Preliminary NO GROWTH AFTER 2 DAYS Med Orders - Current: Current Medications Acetaminophen (Tylenol) 650 mg PO Q4H PRN PRN Reason: Pain (Mild 1-3)/fever Last Admin: 03/09/20 13:40 Dose: 650 mg Documented by: Albuterol (Proventil Hfa) 0 gm INH Q4H PRN PRN Reason: Shortness of Breath Last Admin: 03/09/20 14:09 Dose: 2 puff Documented by: Ascorbic Acid (Vitamin C) 250 mg PO BIDAC [facility] Last Admin: 03/12/20 06:31 Dose: 250 mg Documented by: Benzonatate (Tessalon Perles) 100 mg PO QID PRN PRN Reason: Cough Last Admin: 03/12/20 06:30 Dose: 100 mg Documented by: Cholecalciferol (Vitamin D3) 10,000 unit PO DAILY [facility] Last Admin: 03/12/20 08:49 Dose: 10,000 unit Documented by: Dexamethasone (Dexamethasone) 6 mg PO DAILY [facility] Last Admin: 03/12/20 08:44 Dose: 6 mg Documented by: Enoxaparin Sodium (Lovenox) 40 mg SUBCUT DAILY [facility] Last Admin: 03/12/20 08:46 Dose: 40 mg Documented by: Ferrous Sulfate (Ferrous Sulfate) 324 mg PO BIDMEALS [facility] Last Admin: 03/12/20 06:31 Dose: 324 mg Documented by: Guaifenesin/Codeine Phosphate (Robitussin Ac) 5 ml PO Q4H PRN PRN Reason: Cough Last Admin: 03/12/20 06:30 Dose: 5 ml Documented by: REMDESIVIR (EUA) 100 mg/ (Sodium Chloride) 100 mls @ 100 mls/hr IV Q24H [facility] Stop: 03/12/20 21:59 Last Admin: 03/11/20 19:59 Dose: 100 mls/hr Documented by: Ceftriaxone Sodium 2 gm/ (Sodium Chloride) 100 mls @ 200 mls/hr IV Q24H [facility] Stop: 03/13/20 16:00 Last Admin: 03/11/20 14:42 Dose: 200 mls/hr Documented by: Ondansetron HCl (Zofran) 4 mg IV Q4H PRN PRN Reason: Nausea/Vomiting Sodium Chloride (Saline Flush) 10 ml FLUSH ASDIRECTED PRN PRN Reason: Keep Vein Open Last Admin: 03/08/20 17:41 Dose: 10 ml Documented by: Discontinued Medications Cholecalciferol (Vitamin D3) 5,000 unit PO DAILY [facility] Last Admin: 03/09/20 09:13 Dose: 5,000 unit Documented by: REMDESIVIR (EUA) 200 mg/ (Sodium Chloride) 250 mls @ 250 mls/hr IV ONETIME ONE Stop: 03/08/20 21:59 Last Admin: 03/08/20 21:13 Dose: 250 mls/hr Documented by: Azithromycin 500 mg/ Sodium (Chloride) 250 mls @ 250 mls/hr IV ONETIME ONE Stop: 03/09/20 14:50 Last Admin: 03/09/20 14:33 Dose: 250 mls/hr Documented by: Azithromycin 500 mg/ Sodium (Chloride) 250 mls @ 250 mls/hr IV Q24H [facility] Stop: 03/12/20 14:01 Last Admin: 03/11/20 14:42 Dose: 250 mls/hr Documented by: Tocilizumab 800 mg/ Sodium (Chloride) 100 mls @ 100 mls/hr IV ONETIME ONE Stop: 03/10/20 22:59 Tocilizumab 800 mg/ Sodium (Chloride) 100 mls @ 100 mls/hr IV ONETIME ONE Stop: 03/10/20 22:59 Last Admin: 03/10/20 22:38 Dose: 100 mls/hr Documented by: Ondansetron HCl (Zofran Odt) 4 mg PO ONETIME ONE Stop: 03/08/20 17:16 Last Admin: 03/08/20 17:44 Dose: Not Given Documented by: Ondansetron HCl (Zofran) Confirm Administered Dose 4 mg .ROUTE .STK-MED ONE Stop: 03/08/20 17:41 Last Admin: 03/08/20 17:44 Dose: Not Given Documented by: Ondansetron HCl (Zofran) 4 mg IVPUSH ONETIME ONE Stop: 03/08/20 17:45 Last Admin: 03/08/20 17:45 Dose: 4 mg Documented by: Potassium Chloride (Klor-Con M20) 40 meq PO ONETIME ONE Stop: 03/09/20 10:30 Last Admin: 03/09/20 12:45 Dose: 40 meq Documented by: - Exam Quality Assessment: Supplemental Oxygen General: Alert, Oriented HEENT: Pupils Equal, Mucous Membr. Moist/[place] Neck: Supple Lungs: Clear to Auscultation, Normal Respiratory Effort Cardiovascular: Regular Rate, Regular Rhythm GI/Abdominal Exam: Normal Bowel Sounds, Soft, Non-Tender, No Distention Back Exam: Normal Inspection, Full Range of Motion Extremities: Normal Inspection, Normal Range of Motion, Non-Tender, No Pedal Edema, Normal Capillary Refill Skin: Warm, Dry, Intact Psy/Mental Status: Alert, Normal Affect, Normal Mood Sepsis Event Note - Evaluation Sepsis Screening Result: No Definite Risk - Focused Exam Vital Signs: Vital Signs Temp Resp BP Pulse Ox 03/12/20 08:54 97.6 F 21 H 113/60 96 03/12/20 06:28 97.2 F 18 116/66 93 L - Problem List & Annotations (1) 2019 novel coronavirus detected SNOMED Code(s): 840779861, 493889521 Code(s): U07.1 - COVID-19 Status: Acute Current Visit: Yes (2) Hypoxia SNOMED Code(s): 628728217 Code(s): R09.02 - HYPOXEMIA Status: Acute Current Visit: Yes (3) Microcytic hypochromic anemia SNOMED Code(s): 81176097 Code(s): D50.9 - IRON DEFICIENCY ANEMIA, UNSPECIFIED Status: Acute Current Visit: Yes (4) Vitamin D deficiency SNOMED Code(s): 18897321 Code(s): E55.9 - VITAMIN D DEFICIENCY, UNSPECIFIED Status: Acute Current Visit: Yes - Problem List Review Problem List Initiated/Reviewed/Updated: Yes - My Orders Last 24 Hours: My Active Orders 03/12/20 06:21 C-REACTIVE PROTEIN [CHEM] AM CMP [COMPREHENSIVE METABOLIC PN,CMP] [CHEM] AM MAGNESIUM [CHEM] AM PHOSPHORUS [CHEM] AM 03/13/20 05:11 C-REACTIVE PROTEIN [CHEM] AM CBC WITH AUTO DIFF [HEME] AM CMP [COMPREHENSIVE METABOLIC PN,CMP] [CHEM] AM MAGNESIUM [CHEM] AM PHOSPHORUS [CHEM] AM 03/14/20 05:11 C-REACTIVE PROTEIN [CHEM] AM CBC WITH AUTO DIFF [HEME] AM CMP [COMPREHENSIVE METABOLIC PN,CMP] [CHEM] AM MAGNESIUM [CHEM] AM PHOSPHORUS [CHEM] AM 03/15/20 05:11 C-REACTIVE PROTEIN [CHEM] AM CBC WITH AUTO DIFF [HEME] AM CMP [COMPREHENSIVE METABOLIC PN,CMP] [CHEM] AM MAGNESIUM [CHEM] AM PHOSPHORUS [CHEM] AM - Plan Plan:: Assessment March 08, 2020day of admission COVID-19 infection with hypoxemia * Symptoms started 6 days ago with fever and progressed to shortness of breath, cough, nausea, vomiting, and diarrhea * Mild respiratory distress with increased respiratory rate * Initial pulse ox on room air 84% * 1 L nasal cannula adequate to bring SPO2 up to 94% * Patient is able to keep fluids down but not solid foods. * Adequate urination * Chest x-ray consistent with bilateral pneumonia, but poor quality image secondary to poor inspiration * WBC 4.82, INR 1.0, d-dimer 0.32, CRP 4.9, ferritin 105, creatinine kinase 55, LDH 370, troponin I less than 0.017, proBNP 25, lactic acid 0.7 Microcytic anemia * Hemoglobin 10.3 with MCV of 70.8 and MCH 20.9. Microcytosis and hypochromasia was noted. * Normal ferritin of 105, but confounded by active COVID-19 infection * Menstrual cycles are generally normal in quality and only last 5 days. Vitamin D deficiency * 25 hydroxy vitamin D <0.05 Plan * Admit to [facility] on telemetry and continuous pulse ox * FiO2 to keep SPO2 between 88-95% * Remdesivir 200 mg IV x1 then 100 mg IV daily * Hold on using dexamethasone, antibiotics, tocilizumab secondary to requiring only 1 L nasal cannula and CRP less than 8. Hold on antibiotics because no signs of bacterial coinfection. * Monitor CBC, CMP, mag, d-dimer, CRP daily. * If CRP continues to climb her oxygen requirement continues to increase will consider dexamethasone and tocilizumab. * Encourage prone positioning * Ferrous sulfate 324 mg twice daily with vitamin C 250 mg twice daily * Vitamin D3 5000 international units daily * Procalcitonin * Troponin I in the morning * VTE prophylaxis with Lovenox 40 mg subcu daily * CODE STATUS: Full code * Length of stay minimum of 5 days to finish full course of remdesivir. Patient also will need to be off of requiring oxygen. March 09, 2020 Assessment COVID-19 infection with hypoxemia * Oxygen need and symptoms are worsening. * Increased respiratory rate and coughing. * Up to 3 to 4 L nasal cannula after ambulation. * D-dimer 0.32, fibrinogen 444, C-reactive protein 5.2, Elevated liver enzymes * AST 167, ALT 137 * Likely secondary to fatty liver disease, but also possibly due to coronavirus * Ultrasound not available on the weekends. Microcytic anemia * No change Hypokalemia * Potassium 3.3 Vitamin D deficiency March 10, 2020 Severe COVID 19 infection with worsening hypoxemia COVID-19 pneumonia with atelectasis * Chest x-ray shows worsening atelectasis and pneumonia * Started on dexamethasone yesterday and continues on remdesivir * FiO2 need increased with activity, but it is coming down at rest. Currently at 3 L nasal cannula * White count decreased at 2.95, d-dimer normal 0.35, C-reactive protein decreased 4.2 LDH increased 398 * Oxygen saturations between 90 and 95% at rest on 3 L nasal cannula * Day 3 of remdesivir and day 2 of dexamethasone * Rocephin and azithromycin day 2 Elevated liver enzymes * AST 122, ALT 110, normal alkaline phosphatase 58 * Continue monitoring Iron deficiency anemia * Iron low at 18 with percent saturation 5% Hypokalemiaresolved March 11, 2020 Severe COVID-19 infection with hypoxemiaimproved COVID-19 pneumonia with atelectasis * Patient has had a decrease in oxygen requirements overnight. She is down to 4 L nasal cannula and saturations are in the mid 90s * Continues on remdesivir and dexamethasone. * Received 1 dose of Actemra last night because of worsening hypoxemia * C-reactive protein is down to 1.6, WBC 2.95 Elevated liver enzymesimproving * AST 73, ALT 89 Iron deficiency anemia * Decrease in hemoglobin to 8.9 * Patient is currently on her menstrual cycle and it is severe likely worsened by Lovenox for VTE prophylaxis. Unfortunately bleeding risk needs to be weighed with increased clotting risk secondary to COVID. Plan * Continue remdesivir 100 mg daily, day 4 of 5 * Continue Rocephin 2 g every 24 hours x5 days and azithromycin 500 mg every 24 hours x3 days * Continue dexamethasone 6 mg daily for 10 days because of worsening oxygen need. * Actemra given last night will consider another dose if symptoms worsen * Continue albuterol 2 puffs every 4 hours as needed * FiO2 to keep pulse ox between 88 and 95% * CBC, CMP, mag, d-dimer, C-reactive protein, in the morning * Recheck hemoglobin in the morning and if continues to drop may have to hold Lovenox. * VTE prophylaxis with Lovenox * Full code March 12, 2020 Severe COVID-19 infection with hypoxemiacontinued improvement COVID-19 pneumonia with atelectasis * Continued improvement in respiratory status. She is down to 3 L nasal cannula. * She is on day 5 of remdesivir * Day 4 of Rocephin and dexamethasone * Completed course of azithromycin * C-reactive protein normal at 0.9 Elevated liver enzymes * AST 113, ALT 97 Iron deficiency anemia * Hemoglobin increased to 9.3 * Heavy menses Plan * Last day of remdesivir * 2 more days of Rocephin * 6 days of dexamethasone * Continue weaning FiO2 * Continue following CBC and CMP. Follow liver enzymes closely. * Length of stay dependent on oxygen needs but at this rate will be likely 3 more days.
[2020-03-12] MEDS: cefTRIAXone 2 GM in Sodium Chloride 0.9% 100 ML IV SCH (14:56)
[2020-03-12] MEDS: REMDESIVIR (EUA) 100 MG in Sodium Chloride 0.9% 100 ML IV SCH (20:40)
[2020-03-13] MEDS: Ascorbic Acid 500 MG Tab PO SCH ×2 (05:32→17:03)
[2020-03-13] MEDS: Ferrous Sulfate 324 MG Tab.EC PO SCH ×3 (05:33→17:03)
[2020-03-13] MEDS: Dexamethasone 4 MG Tab PO SCH (08:04)
[2020-03-13] MEDS: Cholecalciferol (Vitamin D3) 5,000 UNIT Tab PO SCH (08:04)
[2020-03-13] MEDS: Enoxaparin 40 MG/0.4 ML Syringe SUBCUT SCH (08:04)
[2020-03-13] MEDS ORDERED: Magnesium Sulfate/Water 4 GM in Premix Bag 1 BAG IV ONE (08:16)
[2020-03-13] MEDS: Benzonatate 100 MG Cap PO PRN ×2 (10:51→21:02)
[2020-03-13] MEDS: Codeine/guaiFENesin 10-100 MG/5 ML Syrup 5 ML Cup PO PRN ×2 (10:51→21:02)
--- NOTE | 2020-03-13 12:58 | PCM.PN ---
- General Info Date of Service: 03/13/20 Admission Dx/Problem (Free Text): Admission Diagnosis/Problem Admission Diagnosis/Problem Hypoxemia Subjective Update: Patient continues to improve. Appetite has improved and she has had her sense of smell and taste return. Functional Status: Reports: Pain Controlled - Review of Systems General: Reports: No Symptoms HEENT: Reports: No Symptoms Pulmonary: Reports: Cough Cardiovascular: Reports: No Symptoms Gastrointestinal: Reports: No Symptoms Musculoskeletal: Reports: No Symptoms - Patient Data Vitals - Most Recent: Last Vital Signs Temp 96.8 F L 03/13/20 10:00 Pulse 58 L 03/11/20 12:26 Resp 18 03/13/20 10:00 BP 118/61 03/13/20 10:00 Pulse Ox 94 L 03/13/20 10:00 Weight - Most Recent: 116.936 kg I&O - Last 24 Hours: Intake & Output 03/12/20 03/13/20 03/13/20 22:59 06:59 14:59 Intake Total 932 800 Balance 932 800 Lab Results Last 24 Hours: Laboratory Results - last 24 hr 03/12/20 03/13/20 03/13/20 Range/Units 06:21 05:20 05:20 WBC 4.87 (3.98-10.04) K/mm3 RBC 4.35 (3.98-5.22) M/mm3 Hgb 9.4 L (11.2-15.7) gm/dl Hct 31.9 L (34.1-44.9) % MCV 73.3 L (79.4-94.8) fl MCH 21.6 L (25.6-32.2) pg MCHC 29.5 L (32.2-35.5) g/dl RDW Std Deviation 39.9 (36.4-46.3) fL Plt Count 454 H (182-369) K/mm3 MPV 10.1 (9.4-12.3) fl Neut % (Auto) 50.6 (34.0-71.1) % Lymph % (Auto) 39.0 (19.3-51.7) % Elliott % (Auto) 9.4 (4.7-12.5) % Eos % (Auto) 0.2 L (0.7-5.8) Baso % (Auto) 0.6 (0.1-1.2) % Neut # (Auto) 2.46 (1.56-6.13) K/mm3 Lymph # (Auto) 1.90 (1.18-3.74) K/mm3 Elliott # (Auto) 0.46 H (0.24-0.36) K/mm3 Eos # (Auto) 0.01 L (0.04-0.36) K/mm3 Baso # (Auto) 0.03 (0.01-0.08) K/mm3 Manual Slide Review Abnormal smear Sodium 138 (136-145) mEq/L Potassium 3.5 (3.5-5.1) mEq/L Chloride 102 (98-107) mEq/L Carbon Dioxide 28 (21-32) mEq/L Anion Gap 11.5 (5-15) BUN 9 (7-18) mg/dL Creatinine 0.6 (0.55-1.02) mg/dL Est Cr Clr Drug Dosing 141.81 mL/min Estimated GFR (MDRD) > 60 (>60) mL/min BUN/Creatinine Ratio 15.0 (14-18) Glucose 117 H (74-106) mg/dL Calcium 8.2 L 8.2 L (8.5-10.1) mg/dL Phosphorus 4.2 4.2 (2.6-4.7) mg/dL Magnesium 1.5 L (1.8-2.4) mg/dl Total Bilirubin 0.2 (0.2-1.0) mg/dL AST 104 H (15-37) U/L ALT 99 H (14-59) U/L Alkaline Phosphatase 48 (46-116) U/L Total Protein 7.4 (6.4-8.2) g/dl Albumin 3.0 L (3.4-5.0) g/dl Globulin 4.4 gm/dL Albumin/Globulin Ratio 0.7 L (1-2) Hernandez Results Last 24 Hours: Microbiology 03/09/20 14:58 Aerobic Blood Culture - Preliminary Blood - Venous - Lab Draw NO GROWTH AFTER 3 DAYS Anaerobic Blood Culture - Preliminary NO GROWTH AFTER 3 DAYS 03/09/20 14:45 Aerobic Blood Culture - Preliminary Blood - Venous NO GROWTH AFTER 3 DAYS Anaerobic Blood Culture - Preliminary NO GROWTH AFTER 3 DAYS Med Orders - Current: Current Medications Acetaminophen (Tylenol) 650 mg PO Q4H PRN PRN Reason: Pain (Mild 1-3)/fever Last Admin: 03/09/20 13:40 Dose: 650 mg Documented by: Albuterol (Proventil Hfa) 0 gm INH Q4H PRN PRN Reason: Shortness of Breath Last Admin: 03/09/20 14:09 Dose: 2 puff Documented by: Ascorbic Acid (Vitamin C) 250 mg PO BIDAC [facility] Last Admin: 03/13/20 05:32 Dose: 250 mg Documented by: Benzonatate (Tessalon Perles) 100 mg PO QID PRN PRN Reason: Cough Last Admin: 03/13/20 10:51 Dose: 100 mg Documented by: Cholecalciferol (Vitamin D3) 10,000 unit PO DAILY [facility] Last Admin: 03/13/20 08:04 Dose: 10,000 unit Documented by: Dexamethasone (Dexamethasone) 6 mg PO DAILY [facility] Last Admin: 03/13/20 08:04 Dose: 6 mg Documented by: Enoxaparin Sodium (Lovenox) 40 mg SUBCUT DAILY [facility] Last Admin: 03/13/20 08:04 Dose: 40 mg Documented by: Ferrous Sulfate (Ferrous Sulfate) 324 mg PO BIDMEALS [facility] Last Admin: 03/13/20 06:14 Dose: Not Given Documented by: Guaifenesin/Codeine Phosphate (Robitussin Ac) 5 ml PO Q4H PRN PRN Reason: Cough Last Admin: 03/13/20 10:51 Dose: 5 ml Documented by: Ceftriaxone Sodium 2 gm/ (Sodium Chloride) 100 mls @ 200 mls/hr IV Q24H [facility] Stop: 03/13/20 16:00 Last Admin: 03/12/20 14:56 Dose: 200 mls/hr Documented by: Melatonin (Melatonin) 9 mg PO BEDTIME PRN PRN Reason: Insomnia Ondansetron HCl (Zofran) 4 mg IV Q4H PRN PRN Reason: Nausea/Vomiting Sodium Chloride (Saline Flush) 10 ml FLUSH ASDIRECTED PRN PRN Reason: Keep Vein Open Last Admin: 03/08/20 17:41 Dose: 10 ml Documented by: Discontinued Medications Cholecalciferol (Vitamin D3) 5,000 unit PO DAILY [facility] Last Admin: 03/09/20 09:13 Dose: 5,000 unit Documented by: REMDESIVIR (EUA) 200 mg/ (Sodium Chloride) 250 mls @ 250 mls/hr IV ONETIME ONE Stop: 03/08/20 21:59 Last Admin: 03/08/20 21:13 Dose: 250 mls/hr Documented by: REMDESIVIR (EUA) 100 mg/ (Sodium Chloride) 100 mls @ 100 mls/hr IV Q24H [facility] Stop: 03/12/20 21:59 Last Admin: 03/12/20 20:40 Dose: 100 mls/hr Documented by: Azithromycin 500 mg/ Sodium (Chloride) 250 mls @ 250 mls/hr IV ONETIME ONE Stop: 03/09/20 14:50 Last Admin: 03/09/20 14:33 Dose: 250 mls/hr Documented by: Azithromycin 500 mg/ Sodium (Chloride) 250 mls @ 250 mls/hr IV Q24H [facility] Stop: 03/12/20 14:01 Last Admin: 03/11/20 14:42 Dose: 250 mls/hr Documented by: Tocilizumab 800 mg/ Sodium (Chloride) 100 mls @ 100 mls/hr IV ONETIME ONE Stop: 03/10/20 22:59 Tocilizumab 800 mg/ Sodium (Chloride) 100 mls @ 100 mls/hr IV ONETIME ONE Stop: 03/10/20 22:59 Last Admin: 03/10/20 22:38 Dose: 100 mls/hr Documented by: Magnesium Sulfate 4 gm/ Premix 50 mls @ 12.5 mls/hr IV ONETIME ONE Stop: 03/13/20 12:15 Last Admin: 03/13/20 08:55 Dose: 12.5 mls/hr Documented by: Ondansetron HCl (Zofran Odt) 4 mg PO ONETIME ONE Stop: 03/08/20 17:16 Last Admin: 03/08/20 17:44 Dose: Not Given Documented by: Ondansetron HCl (Zofran) Confirm Administered Dose 4 mg .ROUTE .STK-MED ONE Stop: 03/08/20 17:41 Last Admin: 03/08/20 17:44 Dose: Not Given Documented by: Ondansetron HCl (Zofran) 4 mg IVPUSH ONETIME ONE Stop: 03/08/20 17:45 Last Admin: 03/08/20 17:45 Dose: 4 mg Documented by: Potassium Chloride (Klor-Con M20) 40 meq PO ONETIME ONE Stop: 03/09/20 10:30 Last Admin: 03/09/20 12:45 Dose: 40 meq Documented by: - Exam Quality Assessment: Supplemental Oxygen General: Alert, Oriented HEENT: Pupils Equal Neck: Supple Lungs: Clear to Auscultation, Normal Respiratory Effort Cardiovascular: Regular Rate, Regular Rhythm GI/Abdominal Exam: Normal Bowel Sounds, Soft, Non-Tender, No Organomegaly, No Distention, No Abnormal Bruit Extremities: Normal Inspection, Normal Range of Motion, Non-Tender, No Pedal Edema, Normal Capillary Refill Skin: Warm, Dry, Intact Neurological: No New Focal Deficit Psy/Mental Status: Alert, Normal Affect, Normal Mood Sepsis Event Note - Evaluation Sepsis Screening Result: No Definite Risk - Focused Exam Vital Signs: Vital Signs Temp Resp BP Pulse Ox 03/13/20 10:00 96.8 F L 18 118/61 94 L 03/13/20 08:07 95 03/13/20 05:28 97.4 F 20 116/74 94 L - Problem List & Annotations (1) 2019 novel coronavirus detected SNOMED Code(s): 614871705, 803132370 Code(s): U07.1 - COVID-19 Status: Acute Current Visit: Yes (2) Hypoxia SNOMED Code(s): 481865992 Code(s): R09.02 - HYPOXEMIA Status: Acute Current Visit: Yes (3) Microcytic hypochromic anemia SNOMED Code(s): 31400236 Code(s): D50.9 - IRON DEFICIENCY ANEMIA, UNSPECIFIED Status: Acute Current Visit: Yes (4) Vitamin D deficiency SNOMED Code(s): 91443901 Code(s): E55.9 - VITAMIN D DEFICIENCY, UNSPECIFIED Status: Acute Current Visit: Yes - Problem List Review Problem List Initiated/Reviewed/Updated: Yes - My Orders Last 24 Hours: My Active Orders 03/12/20 21:37 Melatonin 9 mg PO BEDTIME PRN 03/14/20 05:11 CBC WITH AUTO DIFF [HEME] AM CMP [COMPREHENSIVE METABOLIC PN,CMP] [CHEM] AM MAGNESIUM [CHEM] AM PHOSPHORUS [CHEM] AM 03/15/20 05:11 CBC WITH AUTO DIFF [HEME] AM CMP [COMPREHENSIVE METABOLIC PN,CMP] [CHEM] AM MAGNESIUM [CHEM] AM PHOSPHORUS [CHEM] AM - Plan Plan:: Assessment March 08, 2020day of admission COVID-19 infection with hypoxemia * Symptoms started 6 days ago with fever and progressed to shortness of breath, cough, nausea, vomiting, and diarrhea * Mild respiratory distress with increased respiratory rate * Initial pulse ox on room air 84% * 1 L nasal cannula adequate to bring SPO2 up to 94% * Patient is able to keep fluids down but not solid foods. * Adequate urination * Chest x-ray consistent with bilateral pneumonia, but poor quality image secondary to poor inspiration * WBC 4.82, INR 1.0, d-dimer 0.32, CRP 4.9, ferritin 105, creatinine kinase 55, LDH 370, troponin I less than 0.017, proBNP 25, lactic acid 0.7 Microcytic anemia * Hemoglobin 10.3 with MCV of 70.8 and MCH 20.9. Microcytosis and hypochromasia was noted. * Normal ferritin of 105, but confounded by active COVID-19 infection * Menstrual cycles are generally normal in quality and only last 5 days. Vitamin D deficiency * 25 hydroxy vitamin D <0.05 Plan * Admit to [email or web address] on telemetry and continuous pulse ox * FiO2 to keep SPO2 between 88-95% * Remdesivir 200 mg IV x1 then 100 mg IV daily * Hold on using dexamethasone, antibiotics, tocilizumab secondary to requiring only 1 L nasal cannula and CRP less than 8. Hold on antibiotics because no signs of bacterial coinfection. * Monitor CBC, CMP, mag, d-dimer, CRP daily. * If CRP continues to climb her oxygen requirement continues to increase will c onsider dexamethasone and tocilizumab. * Encourage prone positioning * Ferrous sulfate 324 mg twice daily with vitamin C 250 mg twice daily * Vitamin D3 5000 international units daily * Procalcitonin * Troponin I in the morning * VTE prophylaxis with Lovenox 40 mg subcu daily * CODE STATUS: Full code * Length of stay minimum of 5 days to finish full course of remdesivir. Patient also will need to be off of requiring oxygen. March 09, 2020 Assessment COVID-19 infection with hypoxemia * Oxygen need and symptoms are worsening. * Increased respiratory rate and coughing. * Up to 3 to 4 L nasal cannula after ambulation. * D-dimer 0.32, fibrinogen 444, C-reactive protein 5.2, Elevated liver enzymes * AST 167, ALT 137 * Likely secondary to fatty liver disease, but also possibly due to coronavirus * Ultrasound not available on the weekends. Microcytic anemia * No change Hypokalemia * Potassium 3.3 Vitamin D deficiency March 10, 2020 Severe COVID 19 infection with worsening hypoxemia COVID-19 pneumonia with atelectasis * Chest x-ray shows worsening atelectasis and pneumonia * Started on dexamethasone yesterday and continues on remdesivir * FiO2 need increased with activity, but it is coming down at rest. Currently at 3 L nasal cannula * White count decreased at 2.95, d-dimer normal 0.35, C-reactive protein decreased 4.2 LDH increased 398 * Oxygen saturations between 90 and 95% at rest on 3 L nasal cannula * Day 3 of remdesivir and day 2 of dexamethasone * Rocephin and azithromycin day 2 Elevated liver enzymes * AST 122, ALT 110, normal alkaline phosphatase 58 * Continue monitoring Iron deficiency anemia * Iron low at 18 with percent saturation 5% Hypokalemiaresolved March 11, 2020 Severe COVID-19 infection with hypoxemiaimproved COVID-19 pneumonia with atelectasis * Patient has had a decrease in oxygen requirements overnight. She is down to 4 L nasal cannula and saturations are in the mid 90s * Continues on remdesivir and dexamethasone. * Received 1 dose of Actemra last night because of worsening hypoxemia * C-reactive protein is down to 1.6, WBC 2.95 Elevated liver enzymesimproving * AST 73, ALT 89 Iron deficiency anemia * Decrease in hemoglobin to 8.9 * Patient is currently on her menstrual cycle and it is severe likely worsened by Lovenox for VTE prophylaxis. Unfortunately bleeding risk needs to be weighed with increased clotting risk secondary to COVID. Plan * Continue remdesivir 100 mg daily, day 4 of 5 * Continue Rocephin 2 g every 24 hours x5 days and azithromycin 500 mg every 24 hours x3 days * Continue dexamethasone 6 mg daily for 10 days because of worsening oxygen need. * Actemra given last night will consider another dose if symptoms worsen * Continue albuterol 2 puffs every 4 hours as needed * FiO2 to keep pulse ox between 88 and 95% * CBC, CMP, mag, d-dimer, C-reactive protein, in the morning * Recheck hemoglobin in the morning and if continues to drop may have to hold Lovenox. * VTE prophylaxis with Lovenox * Full code March 12, 2020 Severe COVID-19 infection with hypoxemiacontinued improvement COVID-19 pneumonia with atelectasis * Continued improvement in respiratory status. She is down to 3 L nasal cannula. * She is on day 5 of remdesivir * Day 4 of Rocephin and dexamethasone * Completed course of azithromycin * C-reactive protein normal at 0.9 Elevated liver enzymes * AST 113, ALT 97 Iron deficiency anemia * Hemoglobin increased to 9.3 * Heavy menses Plan * Last day of remdesivir * 2 more days of Rocephin * 6 days of dexamethasone * Continue weaning FiO2 * Continue following CBC and CMP. Follow liver enzymes closely. * Length of stay dependent on oxygen needs but at this rate will be likely 3 more days. March 13, 2020 Severe COVID-19 infection with hypoxemia and pneumonia * Continued improvement with oxygen requirement down to 2 L nasal cannula * Finished remdesivir. * Last day of Rocephin. * On day 5 of dexamethasone. Elevated liver enzymes * Stable * AST 104, ALT 99 Iron deficiency anemiastable * Hemoglobin 9.4 Plan * Continue current care of dexamethasone 6 mg daily for total course of 10 days. * Continue weaning oxygen and patient will be discharged when she is able to maintain her saturations.
[2020-03-13] MEDS: cefTRIAXone 2 GM in Sodium Chloride 0.9% 100 ML IV SCH (14:02)
[2020-03-13] MEDS: Melatonin 3 MG Tab PO PRN (21:02)
[2020-03-14] MEDS: Ascorbic Acid 500 MG Tab PO SCH ×3 (06:48→20:42)
[2020-03-14] MEDS: Ferrous Sulfate 324 MG Tab.EC PO SCH ×3 (06:48→20:42)
[2020-03-14] MEDS: Enoxaparin 40 MG/0.4 ML Syringe SUBCUT SCH (08:56)
[2020-03-14] MEDS: Cholecalciferol (Vitamin D3) 5,000 UNIT Tab PO SCH (08:57)
[2020-03-14] MEDS: Dexamethasone 4 MG Tab PO SCH (08:59)
--- NOTE | 2020-03-14 16:14 | PCM.PN ---
- General Info Date of Service: 03/14/20 Admission Dx/Problem (Free Text): Admission Diagnosis/Problem Admission Diagnosis/Problem Hypoxemia Subjective Update: Patient is doing well. Appetite continues to improve. She has weaned mostly off of oxygen, but still has saturations in the upper 80s and low 90s with ambulation. Functional Status: Reports: Pain Controlled - Review of Systems General: Reports: No Symptoms HEENT: Reports: No Symptoms Pulmonary: Reports: No Symptoms Cardiovascular: Reports: No Symptoms Gastrointestinal: Reports: No Symptoms Musculoskeletal: Reports: No Symptoms Skin: Reports: No Symptoms Neurological: Reports: No Symptoms Psychiatric: Reports: No Symptoms - Patient Data Vitals - Most Recent: Last Vital Signs Temp 98.5 F 03/14/20 10:00 Pulse 56 L 03/14/20 06:15 Resp 18 03/14/20 10:00 BP 121/76 03/14/20 10:00 Pulse Ox 93 L 03/14/20 10:00 Weight - Most Recent: 115.212 kg I&O - Last 24 Hours: Intake & Output 03/14/20 03/14/20 03/14/20 06:59 14:59 22:59 Intake Total 1000 Balance 1000 Lab Results Last 24 Hours: Laboratory Results - last 24 hr 03/14/20 03/14/20 Range/Units 05:26 05:26 WBC 6.02 (3.98-10.04) K/mm3 RBC 4.50 (3.98-5.22) M/mm3 Hgb 9.4 L (11.2-15.7) gm/dl Hct 32.6 L (34.1-44.9) % MCV 72.4 L (79.4-94.8) fl MCH 20.9 L (25.6-32.2) pg MCHC 28.8 L (32.2-35.5) g/dl RDW Std Deviation 40.1 (36.4-46.3) fL Plt Count 473 H (182-369) K/mm3 MPV 9.9 (9.4-12.3) fl Neut % (Auto) 52.3 (34.0-71.1) % Lymph % (Auto) 36.9 (19.3-51.7) % [place] % (Auto) 9.1 (4.7-12.5) % Eos % (Auto) 1.0 (0.7-5.8) Baso % (Auto) 0.5 (0.1-1.2) % Neut # (Auto) 3.15 (1.56-6.13) K/mm3 Lymph # (Auto) 2.22 (1.18-3.74) K/mm3 [place] # (Auto) 0.55 H (0.24-0.36) K/mm3 Eos # (Auto) 0.06 (0.04-0.36) K/mm3 Baso # (Auto) 0.03 (0.01-0.08) K/mm3 Manual Slide Review Abnormal smear Sodium 139 (136-145) mEq/L Potassium 3.5 (3.5-5.1) mEq/L Chloride 102 (98-107) mEq/L Carbon Dioxide 29 (21-32) mEq/L Anion Gap 11.5 (5-15) BUN 10 (7-18) mg/dL Creatinine 0.5 L (0.55-1.02) mg/dL Est Cr Clr Drug Dosing 170.17 mL/min Estimated GFR (MDRD) > 60 (>60) mL/min BUN/Creatinine Ratio 20.0 H (14-18) Glucose 164 H (74-106) mg/dL Calcium 8.2 L (8.5-10.1) mg/dL Phosphorus 4.1 (2.6-4.7) mg/dL Magnesium 2.0 (1.8-2.4) mg/dl Total Bilirubin 0.2 (0.2-1.0) mg/dL AST 96 H (15-37) U/L ALT 114 H (14-59) U/L Alkaline Phosphatase 49 (46-116) U/L Total Protein 7.2 (6.4-8.2) g/dl Albumin 2.9 L (3.4-5.0) g/dl Globulin 4.3 gm/dL Albumin/Globulin Ratio 0.7 L (1-2) Hernandez Results Last 24 Hours: Microbiology 03/09/20 14:58 Aerobic Blood Culture - Preliminary Blood - Venous - Lab Draw NO GROWTH AFTER 5 DAYS Anaerobic Blood Culture - Preliminary NO GROWTH AFTER 5 DAYS 03/09/20 14:45 Aerobic Blood Culture - Preliminary Blood - Venous NO GROWTH AFTER 5 DAYS Anaerobic Blood Culture - Preliminary NO GROWTH AFTER 5 DAYS Med Orders - Current: Current Medications Acetaminophen (Tylenol) 650 mg PO Q4H PRN PRN Reason: Pain (Mild 1-3)/fever Last Admin: 03/09/20 13:40 Dose: 650 mg Documented by: Albuterol (Proventil Hfa) 0 gm INH Q4H PRN PRN Reason: Shortness of Breath Last Admin: 03/09/20 14:09 Dose: 2 puff Documented by: Ascorbic Acid (Vitamin C) 250 mg PO BID [facility] Last Admin: 03/14/20 08:57 Dose: 250 mg Documented by: Benzonatate (Tessalon Perles) 100 mg PO QID PRN PRN Reason: Cough Last Admin: 03/13/20 21:02 Dose: 100 mg Documented by: Cholecalciferol (Vitamin D3) 10,000 unit PO DAILY [facility] Last Admin: 03/14/20 08:57 Dose: 10,000 unit Documented by: Dexamethasone (Dexamethasone) 6 mg PO DAILY [facility] Last Admin: 03/14/20 08:59 Dose: 6 mg Documented by: Enoxaparin Sodium (Lovenox) 40 mg SUBCUT DAILY [facility] Last Admin: 03/14/20 08:56 Dose: 40 mg Documented by: Ferrous Sulfate (Ferrous Sulfate) 324 mg PO BID [facility] Last Admin: 03/14/20 08:58 Dose: 324 mg Documented by: Guaifenesin/Codeine Phosphate (Robitussin Ac) 5 ml PO Q4H PRN PRN Reason: Cough Last Admin: 03/13/20 21:02 Dose: 5 ml Documented by: Melatonin (Melatonin) 9 mg PO BEDTIME PRN PRN Reason: Insomnia Last Admin: 03/13/20 21:02 Dose: 9 mg Documented by: Ondansetron HCl (Zofran) 4 mg IV Q4H PRN PRN Reason: Nausea/Vomiting Sodium Chloride (Saline Flush) 10 ml FLUSH ASDIRECTED PRN PRN Reason: Keep Vein Open Last Admin: 03/08/20 17:41 Dose: 10 ml Documented by: Discontinued Medications [facility] Last Admin: 03/14/20 06:48 Dose: 250 mg Documented by: Cholecalciferol (Vitamin D3) 5,000 unit PO DAILY [facility] Last Admin: 03/09/20 09:13 Dose: 5,000 unit Documented by: Ferrous Sulfate (Ferrous Sulfate) 324 mg PO BIDMEALS [facility] Last Admin: 03/14/20 06:48 Dose: 324 mg Documented by: REMDESIVIR (EUA) 200 mg/ (Sodium Chloride) 250 mls @ 250 mls/hr IV ONETIME ONE Stop: 03/08/20 21:59 Last Admin: 03/08/20 21:13 Dose: 250 mls/hr Documented by: REMDESIVIR (EUA) 100 mg/ (Sodium Chloride) 100 mls @ 100 mls/hr IV Q24H [facility] Stop: 03/12/20 21:59 Last Admin: 03/12/20 20:40 Dose: 100 mls/hr Documented by: Azithromycin 500 mg/ Sodium (Chloride) 250 mls @ 250 mls/hr IV ONETIME ONE Stop: 03/09/20 14:50 Last Admin: 03/09/20 14:33 Dose: 250 mls/hr Documented by: Ceftriaxone Sodium 2 gm/ (Sodium Chloride) 100 mls @ 200 mls/hr IV Q24H [facility] Stop: 03/13/20 16:00 Last Admin: 03/13/20 14:02 Dose: 200 mls/hr Documented by: Azithromycin 500 mg/ Sodium (Chloride) 250 mls @ 250 mls/hr IV Q24H [facility] Stop: 03/12/20 14:01 Last Admin: 03/11/20 14:42 Dose: 250 mls/hr Documented by: Tocilizumab 800 mg/ Sodium (Chloride) 100 mls @ 100 mls/hr IV ONETIME ONE Stop: 03/10/20 22:59 Tocilizumab 800 mg/ Sodium (Chloride) 100 mls @ 100 mls/hr IV ONETIME ONE Stop: 03/10/20 22:59 Last Admin: 03/10/20 22:38 Dose: 100 mls/hr Documented by: Magnesium Sulfate 4 gm/ Premix 50 mls @ 12.5 mls/hr IV ONETIME ONE Stop: 03/13/20 12:15 Last Admin: 03/13/20 08:55 Dose: 12.5 mls/hr Documented by: Ondansetron HCl (Zofran Odt) 4 mg PO ONETIME ONE Stop: 03/08/20 17:16 Last Admin: 03/08/20 17:44 Dose: Not Given Documented by: Ondansetron HCl (Zofran) Confirm Administered Dose 4 mg .ROUTE .STK-MED ONE Stop: 03/08/20 17:41 Last Admin: 03/08/20 17:44 Dose: Not Given Documented by: Ondansetron HCl (Zofran) 4 mg IVPUSH ONETIME ONE Stop: 03/08/20 17:45 Last Admin: 03/08/20 17:45 Dose: 4 mg Documented by: Potassium Chloride (Klor-Con M20) 40 meq PO ONETIME ONE Stop: 03/09/20 10:30 Last Admin: 03/09/20 12:45 Dose: 40 meq Documented by: - Exam General: Alert, Oriented HEENT: Pupils Equal, Mucous Membr. Moist/[place] Neck: Supple Lungs: Clear to Auscultation, Normal Respiratory Effort Cardiovascular: Regular Rate, Regular Rhythm GI/Abdominal Exam: Normal Bowel Sounds, Soft, Non-Tender, No Distention Extremities: Normal Inspection, Normal Range of Motion, Non-Tender, No Pedal Edema, Normal Capillary Refill Peripheral Pulses: 2+: Posterior Tibial (L), Posterior Tibial (R), Dorsalis Pedis (L), Dorsalis Pedis (R) Skin: Warm, Dry, Intact Neurological: No New Focal Deficit Psy/Mental Status: Alert, Normal Affect, Normal Mood Sepsis Event Note - Evaluation Sepsis Screening Result: No Definite Risk - Focused Exam Vital Signs: Vital Signs Temp Pulse Resp BP Pulse Ox Pulse Ox 03/14/20 10:00 98.5 F 18 121/76 93 L 03/14/20 06:15 56 L 93 L 03/14/20 06:00 52 L 93 L 03/14/20 05:00 58 L 94 L 03/14/20 04:33 93 L 03/14/20 04:30 61 94 L - Problem List & Annotations (1) 2019 novel coronavirus detected SNOMED Code(s): 299125849, 847523516 Code(s): U07.1 - COVID-19 Status: Acute Current Visit: Yes (2) Hypoxia SNOMED Code(s): 984639468 Code(s): R09.02 - HYPOXEMIA Status: Acute Current Visit: Yes (3) Microcytic hypochromic anemia SNOMED Code(s): 73906546 Code(s): D50.9 - IRON DEFICIENCY ANEMIA, UNSPECIFIED Status: Acute Current Visit: Yes (4) Vitamin D deficiency SNOMED Code(s): 77202324 Code(s): E55.9 - VITAMIN D DEFICIENCY, UNSPECIFIED Status: Acute Current Visit: Yes - Problem List Review Problem List Initiated/Reviewed/Updated: Yes - My Orders Last 24 Hours: My Active Orders 03/14/20 09:00 Ascorbic Acid [Vitamin C] 250 mg PO BID Ferrous Sulfate 324 mg PO BID 03/15/20 05:11 CBC WITH AUTO DIFF [HEME] AM CMP [COMPREHENSIVE METABOLIC PN,CMP] [CHEM] AM MAGNESIUM [CHEM] AM PHOSPHORUS [CHEM] AM - Plan Plan:: Assessment March 08, 2020day of admission COVID-19 infection with hypoxemia * Symptoms started 6 days ago with fever and progressed to shortness of breath, cough, nausea, vomiting, and diarrhea * Mild respiratory distress with increased respiratory rate * Initial pulse ox on room air 84% * 1 L nasal cannula adequate to bring SPO2 up to 94% * Patient is able to keep fluids down but not solid foods. * Adequate urination * Chest x-ray consistent with bilateral pneumonia, but poor quality image secondary to poor inspiration * WBC 4.82, INR 1.0, d-dimer 0.32, CRP 4.9, ferritin 105, creatinine kinase 55, LDH 370, troponin I less than 0.017, proBNP 25, lactic acid 0.7 Microcytic anemia * Hemoglobin 10.3 with MCV of 70.8 and MCH 20.9. Microcytosis and hypochromasia was noted. * Normal ferritin of 105, but confounded by active COVID-19 infection * Menstrual cycles are generally normal in quality and only last 5 days. Vitamin D deficiency * 25 hydroxy vitamin D <0.05 Plan * Admit to [facility] on telemetry and continuous pulse ox * FiO2 to keep SPO2 between 88-95% * Remdesivir 200 mg IV x1 then 100 mg IV daily * Hold on using dexamethasone, antibiotics, tocilizumab secondary to requiring only 1 L nasal cannula and CRP less than 8. Hold on antibiotics because no signs of bacterial coinfection. * Monitor CBC, CMP, mag, d-dimer, CRP daily. * If CRP continues to climb her oxygen requirement continues to increase will consider dexamethasone and tocilizumab. * Encourage prone positioning * Ferrous sulfate 324 mg twice daily with vitamin C 250 mg twice daily * Vitamin D3 5000 international units daily * Procalcitonin * Troponin I in the morning * VTE prophylaxis with Lovenox 40 mg subcu daily * CODE STATUS: Full code * Length of stay minimum of 5 days to finish full course of remdesivir. Patient also will need to be off of requiring oxygen. March 09, 2020 Assessment COVID-19 infection with hypoxemia * Oxygen need and symptoms are worsening. * Increased respiratory rate and coughing. * Up to 3 to 4 L nasal cannula after ambulation. * D-dimer 0.32, fibrinogen 444, C-reactive protein 5.2, Elevated liver enzymes * AST 167, ALT 137 * Likely secondary to fatty liver disease, but also possibly due to coronavirus * Ultrasound not available on the weekends. Microcytic anemia * No change Hypokalemia * Potassium 3.3 Vitamin D deficiency March 10, 2020 Severe COVID 19 infection with worsening hypoxemia COVID-19 pneumonia with atelectasis * Chest x-ray shows worsening atelectasis and pneumonia * Started on dexamethasone yesterday and continues on remdesivir * FiO2 need increased with activity, but it is coming down at rest. Currently at 3 L nasal cannula * White count decreased at 2.95, d-dimer normal 0.35, C-reactive protein decreased 4.2 LDH increased 398 * Oxygen saturations between 90 and 95% at rest on 3 L nasal cannula * Day 3 of remdesivir and day 2 of dexamethasone * Rocephin and azithromycin day 2 Elevated liver enzymes * AST 122, ALT 110, normal alkaline phosphatase 58 * Continue monitoring Iron deficiency anemia * Iron low at 18 with percent saturation 5% Hypokalemiaresolved March 11, 2020 Severe COVID-19 infection with hypoxemiaimproved COVID-19 pneumonia with atelectasis * Patient has had a decrease in oxygen requirements overnight. She is down to 4 L nasal cannula and saturations are in the mid 90s * Continues on remdesivir and dexamethasone. * Received 1 dose of Actemra last night because of worsening hypoxemia * C-reactive protein is down to 1.6, WBC 2.95 Elevated liver enzymesimproving * AST 73, ALT 89 Iron deficiency anemia * Decrease in hemoglobin to 8.9 * Patient is currently on her menstrual cycle and it is severe likely worsened by Lovenox for VTE prophylaxis. Unfortunately bleeding risk needs to be weighed with increased clotting risk secondary to COVID. Plan * Continue remdesivir 100 mg daily, day 4 of 5 * Continue Rocephin 2 g every 24 hours x5 days and azithromycin 500 mg every 24 hours x3 days * Continue dexamethasone 6 mg daily for 10 days because of worsening oxygen need. * Actemra given last night will consider another dose if symptoms worsen * Continue albuterol 2 puffs every 4 hours as needed * FiO2 to keep pulse ox between 88 and 95% * CBC, CMP, mag, d-dimer, C-reactive protein, in the morning * Recheck hemoglobin in the morning and if continues to drop may have to hold Lovenox. * VTE prophylaxis with Lovenox * Full code March 12, 2020 Severe COVID-19 infection with hypoxemiacontinued improvement COVID-19 pneumonia with atelectasis * Continued improvement in respiratory status. She is down to 3 L nasal cannula. * She is on day 5 of remdesivir * Day 4 of Rocephin and dexamethasone * Completed course of azithromycin * C-reactive protein normal at 0.9 Elevated liver enzymes * AST 113, ALT 97 Iron deficiency anemia * Hemoglobin increased to 9.3 * Heavy menses Plan * Last day of remdesivir * 2 more days of Rocephin * 6 days of dexamethasone * Continue weaning FiO2 * Continue following CBC and CMP. Follow liver enzymes closely. * Length of stay dependent on oxygen needs but at this rate will be likely 3 more days. March 13, 2020 Severe COVID-19 infection with hypoxemia and pneumonia * Continued improvement with oxygen requirement down to 2 L nasal cannula * Finished remdesivir. * Last day of Rocephin. * On day 5 of dexamethasone. Elevated liver enzymes * Stable * AST 104, ALT 99 Iron deficiency anemiastable * Hemoglobin 9.4 Plan * Continue current care of dexamethasone 6 mg daily for total course of 10 days. * Continue weaning oxygen and patient will be discharged when she is able to maintain her saturations. March 14, 2020 Severe COVID-19 infection with hypoxemia and pneumonia * Wean off of O2 * Still having some episodes in the low 90s with ambulation * On day 6 of dexamethasone Elevated liver enzymes * AST 96, ALT 114, alkaline phosphatase 49. Iron deficiency anemia * Hemoglobin 9.4 Plan * Monitor oxygenation overnight. * Continue dexamethasone. * If oxygen saturations maintained overnight and with ambulation tomorrow discharge on dexamethasone to complete 10 days.
[2020-03-14] MEDS: Benzonatate 100 MG Cap PO PRN (20:42)
[2020-03-14] MEDS: Melatonin 3 MG Tab PO PRN (20:42)
[2020-03-15] MEDS: Dexamethasone 4 MG Tab PO SCH (08:07)
[2020-03-15] MEDS: Ascorbic Acid 500 MG Tab PO SCH (08:08)
[2020-03-15] MEDS: Cholecalciferol (Vitamin D3) 5,000 UNIT Tab PO SCH (08:08)
[2020-03-15] MEDS: Enoxaparin 40 MG/0.4 ML Syringe SUBCUT SCH (08:08)
[2020-03-15] MEDS: Ferrous Sulfate 324 MG Tab.EC PO SCH (08:08)
--- NOTE | 2020-03-15 12:26 | PCM.DCSUM1 ---
Discharge Summary - Hospital Course HPI Initial Comments: 24-year-old patient who was exposed to her cousin who tested positive with COVID-19 presents to the emergency department with increasing shortness of breath, dry cough, nausea, and diarrhea. Patient states that last Wednesday, March 02, 2020, she developed a subjective fever. She then became short of breath and developed a cough with body aches. For last several days she has had loose stools and presented to the emergency department with above. In the emergency department she was found to have an SPO2 of 84% on room air and was placed on 1 L nasal cannula. Patient's cousin was tested 5 days ago for COVID 19 and received the positive results today. In the emergency department patient was screened for COVID-19 and tested positive. Patient is a non-smoker and has no history of asthma. Initial lab work: WBC 4.82, hemoglobin 10.3, MCV 70.8 low, MCH 20.9 low, platelet count 304, microcytosis with hypochromasia, PT 10.9, INR 1.0, d-dimer 0.32 normal, C-reactive protein 4.9, sodium 135, potassium 3.6, BUN 4, creatinine 0.7, bicarb 29, magnesium 1.9, ferritin 105, AST 136, ALT 130, LDH 370 (normal 93126) creatinine kinase 55, troponin I less than 0.017, proBNP 25, lactic acid 0.7. Diagnosis: Stroke: No - Discharge Data Discharge Date: 03/15/20 Discharge Disposition: Home, Self-Care 01 Condition: Undetermined - Referral to Home Health Primary Care Physician: PCP None - Discharge Diagnosis/Problem(s) (1) COVID-19 virus infection SNOMED Code(s): 780286462 ICD Code: U07.1 - COVID-19 Status: Acute Current Visit: Yes (2) Iron deficiency anemia SNOMED Code(s): 33595714 ICD Code: D50.9 - IRON DEFICIENCY ANEMIA, UNSPECIFIED Status: Acute Current Visit: Yes (3) Hypoxia SNOMED Code(s): 881160151 ICD Code: R09.02 - HYPOXEMIA Status: Acute Current Visit: Yes (4) Microcytic hypochromic anemia SNOMED Code(s): 85705461 ICD Code: D50.9 - IRON DEFICIENCY ANEMIA, UNSPECIFIED Status: Acute Current Visit: Yes (5) Vitamin D deficiency SNOMED Code(s): 31346192 ICD Code: E55.9 - VITAMIN D DEFICIENCY, UNSPECIFIED Status: Acute Current Visit: Yes - Patient Summary/Data Consults: Consultations 03/08/20 20:19 Respiratory Care Assess and Treatment [CONS] Routine Hospital Course: Assessment March 08, 2020day of admission COVID-19 infection with hypoxemia * Symptoms started 6 days ago with fever and progressed to shortness of breath, cough, nausea, vomiting, and diarrhea * Mild respiratory distress with increased respiratory rate * Initial pulse ox on room air 84% * 1 L nasal cannula adequate to bring SPO2 up to 94% * Patient is able to keep fluids down but not solid foods. * Adequate urination * Chest x-ray consistent with bilateral pneumonia, but poor quality image secondary to poor inspiration * WBC 4.82, INR 1.0, d-dimer 0.32, CRP 4.9, ferritin 105, creatinine kinase 55, LDH 370, troponin I less than 0.017, proBNP 25, lactic acid 0.7 Microcytic anemia * Hemoglobin 10.3 with MCV of 70.8 and MCH 20.9. Microcytosis and hypochromasia was noted. * Normal ferritin of 105, but confounded by active COVID-19 infection * Menstrual cycles are generally normal in quality and only last 5 days. Vitamin D deficiency * 25 hydroxy vitamin D <0.05 Plan * Admit to [facility] on telemetry and continuous pulse ox * FiO2 to keep SPO2 between 88-95% * Remdesivir 200 mg IV x1 then 100 mg IV daily * Hold on using dexamethasone, antibiotics, tocilizumab secondary to requiring only 1 L nasal cannula and CRP less than 8. Hold on antibiotics because no signs of bacterial coinfection. * Monitor CBC, CMP, mag, d-dimer, CRP daily. * If CRP continues to climb her oxygen requirement continues to increase will consider dexamethasone and tocilizumab. * Encourage prone positioning * Ferrous sulfate 324 mg twice daily with vitamin C 250 mg twice daily * Vitamin D3 5000 international units daily * Procalcitonin * Troponin I in the morning * VTE prophylaxis with Lovenox 40 mg subcu daily * CODE STATUS: Full code * Length of stay minimum of 5 days to finish full course of remdesivir. Patient also will need to be off of requiring oxygen. March 09, 2020 Assessment COVID-19 infection with hypoxemia * Oxygen need and symptoms are worsening. * Increased respiratory rate and coughing. * Up to 3 to 4 L nasal cannula after ambulation. * D-dimer 0.32, fibrinogen 444, C-reactive protein 5.2, Elevated liver enzymes * AST 167, ALT 137 * Likely secondary to fatty liver disease, but also possibly due to coronavirus * Ultrasound not available on the weekends. Microcytic anemia * No change Hypokalemia * Potassium 3.3 Vitamin D deficiency March 10, 2020 Severe COVID 19 infection with worsening hypoxemia COVID-19 pneumonia with atelectasis * Chest x-ray shows worsening atelectasis and pneumonia * Started on dexamethasone yesterday and continues on remdesivir * FiO2 need increased with activity, but it is coming down at rest. Currently at 3 L nasal cannula * White count decreased at 2.95, d-dimer normal 0.35, C-reactive protein decreased 4.2 LDH increased 398 * Oxygen saturations between 90 and 95% at rest on 3 L nasal cannula * Day 3 of remdesivir and day 2 of dexamethasone * Rocephin and azithromycin day 2 Elevated liver enzymes * AST 122, ALT 110, normal alkaline phosphatase 58 * Continue monitoring Iron deficiency anemia * Iron low at 18 with percent saturation 5% Hypokalemiaresolved March 11, 2020 Severe COVID-19 infection with hypoxemiaimproved COVID-19 pneumonia with atelectasis * Patient has had a decrease in oxygen requirements overnight. She is down to 4 L nasal cannula and saturations are in the mid 90s * Continues on remdesivir and dexamethasone. * Received 1 dose of Actemra last night because of worsening hypoxemia * C-reactive protein is down to 1.6, WBC 2.95 Elevated liver enzymesimproving * AST 73, ALT 89 Iron deficiency anemia * Decrease in hemoglobin to 8.9 * Patient is currently on her menstrual cycle and it is severe likely worsened by Lovenox for VTE prophylaxis. Unfortunately bleeding risk needs to be weighed with increased clotting risk secondary to COVID. Plan * Continue remdesivir 100 mg daily, day 4 of 5 * Continue Rocephin 2 g every 24 hours x5 days and azithromycin 500 mg every 24 hours x3 days * Continue dexamethasone 6 mg daily for 10 days because of worsening oxygen need. * Actemra given last night will consider another dose if symptoms worsen * Continue albuterol 2 puffs every 4 hours as needed * FiO2 to keep pulse ox between 88 and 95% * CBC, CMP, mag, d-dimer, C-reactive protein, in the morning * Recheck hemoglobin in the morning and if continues to drop may have to hold Lovenox. * VTE prophylaxis with Lovenox * Full code March 12, 2020 Severe COVID-19 infection with hypoxemiacontinued improvement COVID-19 pneumonia with atelectasis * Continued improvement in respiratory status. She is down to 3 L nasal cannula. * She is on day 5 of remdesivir * Day 4 of Rocephin and dexamethasone * Completed course of azithromycin * C-reactive protein normal at 0.9 Elevated liver enzymes * AST 113, ALT 97 Iron deficiency anemia * Hemoglobin increased to 9.3 * Heavy menses Plan * Last day of remdesivir * 2 more days of Rocephin * 6 days of dexamethasone * Continue weaning FiO2 * Continue following CBC and CMP. Follow liver enzymes closely. * Length of stay dependent on oxygen needs but at this rate will be likely 3 more days. March 13, 2020 Severe COVID-19 infection with hypoxemia and pneumonia * Continued improvement with oxygen requirement down to 2 L nasal cannula * Finished remdesivir. * Last day of Rocephin. * On day 5 of dexamethasone. Elevated liver enzymes * Stable * AST 104, ALT 99 Iron deficiency anemiastable * Hemoglobin 9.4 Plan * Continue current care of dexamethasone 6 mg daily for total course of 10 days. * Continue weaning oxygen and patient will be discharged when she is able to maintain her saturations. March 14, 2020 Severe COVID-19 infection with hypoxemia and pneumonia * Wean off of O2 * Still having some episodes in the low 90s with ambulation * On day 6 of dexamethasone Elevated liver enzymes * AST 96, ALT 114, alkaline phosphatase 49. Iron deficiency anemia * Hemoglobin 9.4 Plan * Monitor oxygenation overnight. * Continue dexamethasone. * If oxygen saturations maintained overnight and with ambulation tomorrow discharge on dexamethasone to complete 10 days. March 15, 2020 Completed treatment Needs to complete 10 days of Dexamethasone Will need to start iron supplementation q48h Started daily vitamin D supplementation No more O2 supplementation required since 03/14 at 4AM OK for discharge Will need to complete 14 days of quarantine starting tomorrow - Patient Instructions Diet: Usual Diet as Tolerated Activity: As Tolerated - Discharge Plan *PRESCRIPTION DRUG MONITORING PROGRAM REVIEWED*: No *COPY OF PRESCRIPTION DRUG MONITORING REPORT IN PATIENT RADHA: No Prescriptions/Med Rec: dexAMETHasone [Dexamethasone] 6 mg PO DAILY #4 dose Ferrous Sulfate 324 mg PO Q48H #15 tab.ec Sennosides [Senna] 8.6 mg PO BID #60 capsule Cholecalciferol (Vitamin D3) [Vitamin D3] 10,000 unit PO DAILY #30 tablet Home Medications: Home Meds Cholecalciferol (Vitamin D3) [Vitamin D3] 10,000 unit PO DAILY #30 tablet 03/15/20 [Rx] Ferrous Sulfate 324 mg PO Q48H #15 tab.ec 03/15/20 [Rx] Sennosides [Senna] 8.6 mg PO BID #60 capsule 03/15/20 [Rx] dexAMETHasone [Dexamethasone] 6 mg PO DAILY #4 dose 03/15/20 [Rx] Oxygen Therapy Mode: Room Air Patient Handouts: COVID-19 Frequently Asked Questions, COVID-19, Infection Prevention in the Home, Prevent the Spread of COVID-19 if You Are Sick - [facility] Forms: ED Department Discharge Referrals: PCP,None [Primary Care Provider] - - Discharge Summary/Plan Comment DC Time >30 min.: No - General Info Date of Service: 03/15/20 Subjective Update: Feeling OK Tolerating diet Shortness of breath resolved No complaints BM yesterday - Patient Data Vitals - Most Recent: Last Vital Signs Temp 97 F 03/15/20 08:11 Pulse 57 L 03/15/20 06:15 Resp 18 03/15/20 08:11 BP 127/76 03/15/20 08:11 Pulse Ox 95 03/15/20 08:11 Weight - Most Recent: 115.439 kg - Exam Quality Assessment: Denies: Supplemental Oxygen General: Reports: Alert, Oriented, Cooperative, No Acute Distress HEENT: Reports: Pupils Equal, Pupils Reactive, EOMI, Mucous Membr. Moist/[place] Neck: Reports: Supple, Trachea Midline, No JVD Lungs: Reports: Clear to Auscultation, Normal Respiratory Effort. Denies: Decreased Breath Sounds, Crackles, Rales, Rhonchi, Rub, Stridor, Wheezing Cardiovascular: Reports: Regular Rate, Regular Rhythm. Denies: Murmurs, Gallops, Rubs GI/Abdominal Exam: Normal Bowel Sounds, Soft, Non-Tender, Distended. No: Guarding, Rigid Extremities: Normal Inspection, Normal Range of Motion, Non-Tender Skin: Reports: Warm, Dry Neurological: Reports: No New Focal Deficit Psy/Mental Status: Reports: Alert, Normal Affect, Normal Mood
== END 2020-03-15 13:57 | disposition home or self-care (01) | DRG 177 ==
LOC: JD.ED 16:30 → JD.MS 18:50 → JD.ICU 21:30 → UNDODISIN 21:54
PROVIDERS: ADMIT Family Medicine; ATTEND Family Medicine
PROC: XW033E5 Introduction of Remdesivir Anti-infective into Peripheral Vein, Percutaneous Approach, New Technology Group 5 (ICD-10-PCS; principal; 2020-03-08)
PROC: XW033E5 Introduction of Remdesivir Anti-infective into Peripheral Vein, Percutaneous Approach, New Technology Group 5 (ICD-10-PCS; 2020-03-09)
PROC: XW033E5 Introduction of Remdesivir Anti-infective into Peripheral Vein, Percutaneous Approach, New Technology Group 5 (ICD-10-PCS; 2020-03-10)
PROC: XW033E5 Introduction of Remdesivir Anti-infective into Peripheral Vein, Percutaneous Approach, New Technology Group 5 (ICD-10-PCS; 2020-03-11)
PROC: XW033E5 Introduction of Remdesivir Anti-infective into Peripheral Vein, Percutaneous Approach, New Technology Group 5 (ICD-10-PCS; 2020-03-12)
DX: U07.1 COVID-19 (principal); J12.89 Other viral pneumonia; D50.9 Iron deficiency anemia, unspecified; E55.9 Vitamin D deficiency, unspecified; E87.6 Hypokalemia; R79.89 Other specified abnormal findings of blood chemistry; R09.02 Hypoxemia; E66.9 Obesity, unspecified; Z68.39 Body mass index [BMI] 39.0-39.9, adult; Z99.81 Dependence on supplemental oxygen
CPT/HCPCS: 36415; 71045; 80053; 82306; 82550; 82728; 83605; 83615; 83735; 83880; 84484; 85007; 85027; 85379; 85610; 85730; 86140; 87635; 93005; 96374; 99285; J2405; 83540; 84100; 84145; 84466; 85025; 85384; 87040; 93010; 94640; 94668; 94762; 99223; 99232; 99233; 99238; 99284; A9270-GY; J0456; J0696; J1650; J3262; J3475; J7050; J8540; U0002